=== PATIENT | female | born 1980 | race Caucasian/White ===

== ENCOUNTER 2018-12-27 18:43 | Emergency (ER) | payer BC ==
--- NOTE | 2018-12-27 19:17 | ERPHSYRPT ---
- History of Present Illness Time Seen by Provider: 12/27/18 19:00 Historian: patient, family Exam Limitations: no limitations Patient Subjective Stated Complaint: pt reports vomiting starting at 0630 today also reports right upper quadrant pain. pt reports she last ate approx 1300 today and immediately vomited. Triage Nursing Assessment: pt is aox3, appears in pain, tearful upon exam, pupils perrl, afebrile, resps easy and non labored, radial pulses strong and equal, cap refill < 3 seconds, pt abd soft, tender to the right upper quadrant, bowel sounds present normoactive x4. pt skin pink warm dry. Physician History: 38 y/o white female presents with epigastric to ruq abd pain and associated n/v since this am at 0630. pt has had a cholecystectomy in the past. no fever. no diarrhea no urinary sx. denies cp and soa. pt states she can take dilaudid and demerol. Timing/Duration: today Quality: sharpness, stabbing Abdominal Pain Onset Location: RUQ, epigastric Pain Radiation: no radiation Severity of Pain-Max: moderate Severity of Pain-Current: moderate Modifying Factors: Improves With: palpation, vomiting Associated Symptoms: loss of appetite, nausea, vomiting Previous symptoms: no prior history Allergies/Adverse Reactions: morphine Allergy (Verified 12/27/18 19:08) Home Medications: Levothyroxine Sodium 150 Mcg [Synthroid 150 Mcg] 137 mcg PO DAILY 12/27/18 [History] Hx Tetanus, Diphtheria Vaccination/Date Given: Yes Hx Influenza Vaccination/Date Given: No Hx Pneumococcal Vaccination/Date Given: No Immunizations Up to Date: Yes - Review of Systems Constitutional: No Symptoms Eyes: No Symptoms Ears, Nose, & Throat: No Symptoms Respiratory: No Symptoms Cardiac: No Symptoms Abdominal/Gastrointestinal: Abdominal Pain, Nausea, Vomiting Genitourinary Symptoms: No Symptoms Musculoskeletal: No Symptoms Skin: No Symptoms Neurological: No Symptoms Psychological: No Symptoms Endocrine: No Symptoms Hematologic/Lymphatic: No Symptoms Immunological/Allergic: No Symptoms All Other Systems: Reviewed and Negative - Past Medical History Pertinent Past Medical History: Yes Neurological History: No Pertinent History ENT History: No Pertinent History Cardiac History: No Pertinent History Respiratory History: No Pertinent History Endocrine Medical History: Hypothyroidism, Thyroid Cancer GI Medical History: No Pertinent History History: No Pertinent History Psycho-Social History: No Pertinent History Female Reproductive Disorders: No Pertinent History - Past Surgical History Past Surgical History: Yes Gastrointestinal: Cholecystectomy, Other Genitourinary: No Pertinent History Musculoskeletal: No Pertinent History Female Surgical History: Tubal Ligation Other Surgical History: thyroidectomy 2005. thymus removal. intestinal polyps removed. ovarian cysts removed - Social History Smoking Status: Never smoker Patient Lives Alone: No - Female History Hx Last Menstrual Period: 12/04/18 Hx Now: No - Nursing Vital Signs Nursing Vital Signs: Initial Vital Signs Temperature 98.0 F 12/27/18 18:50 Pulse Rate 103 H 12/27/18 18:50 Respiratory Rate 20 12/27/18 18:50 Blood Pressure 182/113 12/27/18 18:50 O2 Sat by Pulse Oximetry 98 12/27/18 18:50 Pain Scale Pain Intensity 2 - Physical Exam General Appearance: mild distress, alert, anxiety Eye Exam: PERRL/EOMI, eyes nml inspection Ears, Nose, Throat Exam: normal ENT inspection, moist mucous membranes Neck Exam: normal inspection, non-tender, supple, full range of motion Respiratory Exam: normal breath sounds, lungs clear, airway intact, No chest tenderness, No respiratory distress Cardiovascular Exam: regular rate/rhythm, normal heart sounds, normal peripheral pulses Gastrointestinal/Abdomen Exam: soft, normal bowel sounds, tenderness (ruq and epigastric), No guarding, No rebound Pelvic Exam: not done Rectal Exam: not done Back Exam: normal inspection, normal range of motion, No CVA tenderness, No vertebral tenderness Extremity Exam: normal inspection Neurologic Exam: alert, oriented x 3, cooperative, 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 Skin Exam: normal color, warm, dry Lymphatic Exam: No adenopathy SpO2 Interpretation: normal SpO2: 98 O2 Delivery: Room Air - Course Nursing assessment & vital signs reviewed: Yes Ordered Tests: Active Orders 24 hr Category Date Time Status IV Insertion STAT Care 12/27/18 19:05 Active ABDOMEN AND PELVIS W/0 CONTRAS [CT] Stat Exams 12/27/18 20:15 Taken AMYLASE Stat Lab 12/27/18 19:35 Completed CBC W DIFF Stat Lab 12/27/18 19:35 Completed CMP Stat Lab 12/27/18 19:35 Completed HCG,QUALITATIVE URINE Stat Lab 12/27/18 19:36 Completed LIPASE Stat Lab 12/27/18 19:35 Completed Lactic Acid Stat Lab 12/27/18 19:39 Completed UA W/RFX UR CULTURE Stat Lab 12/27/18 19:36 Completed Medication Summary Discontinued Medications Generic Name Dose Route Start Last Admin Trade Name Milena PRN Reason Stop Dose Admin Hydromorphone HCl 1 mg 12/27/18 19:18 12/27/18 19:24 Hydromorphone 1 Mg/Ml Ampule IV 12/27/18 19:19 1 mg STAT ONE Administration Hydromorphone HCl Confirm 12/27/18 19:21 Hydromorphone 1 Mg/Ml Ampule Administered 12/27/18 19:22 Dose 1 mg .ROUTE .STK-MED ONE Sodium Chloride 1,000 mls @ 999 mls/hr 12/27/18 19:18 12/27/18 20:25 Sodium Chloride 0.9% 1000 Ml IV 12/27/18 20:18 Infused .Q1H1M STA Infusion Sodium Chloride Confirm 12/27/18 19:21 Sodium Chloride 0.9% 1000 Ml Administered 12/27/18 19:22 Dose 1,000 mls @ ud .ROUTE .STK-MED ONE Ondansetron HCl 4 mg 12/27/18 19:18 12/27/18 19:24 Zofran 4 Mg/2 Ml Vial IV 12/27/18 19:19 4 mg STAT ONE Administration Ondansetron HCl Confirm 12/27/18 19:20 Zofran 4 Mg/2 Ml Vial Administered 12/27/18 19:21 Dose 4 mg .ROUTE .STK-MED ONE Promethazine HCl 12.5 mg 12/27/18 20:28 12/27/18 20:33 Phenergan 25 Mg Inj IM 12/27/18 20:29 12.5 mg STAT ONE Administration Promethazine HCl Confirm 12/27/18 20:30 Phenergan 25 Mg Inj Administered 12/27/18 20:31 Dose 25 mg .ROUTE .STK-MED ONE Lab/Rad Data: Laboratory Result Diagrams 12/27/18 19:35 12/27/18 19:35 Laboratory Results 12/27/18 12/27/18 12/27/18 Range/Units 19:39 19:36 19:36 WBC (4.0-10.5) K/mm3 RBC (4.1-5.4) M/mm3 Hgb (12.0-16.0) gm/dl Hct (35-47) % MCV (78-100) fl MCH (26-32) pg MCHC (32-36) g/dl RDW (11.5-14.0) % Plt Count (150-450) K/mm3 MPV (6-9.5) fl Gran % (36.0-66.0) % Eos # (Auto) (0-0.5) Absolute Lymphs (auto) (1.0-4.6) Absolute Monos (auto) (0.0-1.3) Lymphocytes % (24.0-44.0) % Monocytes % (0.0-12.0) % Eosinophils % (0.00-5.0) % Basophils % (0.0-0.4) % Absolute Granulocytes (1.4-6.9) Basophils # (0-0.4) Sodium (137-145) mmol/L Potassium (3.5-5.1) mmol/L Chloride (98-107) mmol/L Carbon Dioxide (22-30) mmol/L Anion Gap (5-15) MEQ/L BUN (7-17) mg/dL Creatinine (0.52-1.04) mg/dL Estimated GFR ML/MIN Glucose (74-106) mg/dL Lactic Acid 1.7 (0.4-2.0) Calcium (8.4-10.2) mg/dL Total Bilirubin (0.2-1.3) mg/dL AST (14-36) U/L ALT (0-35) U/L Alkaline Phosphatase (38-126) U/L Serum Total Protein (6.3-8.2) g/dL Albumin (3.5-5.0) g/dL Amylase (30-110) U/L Lipase (23-300) U/L Urine Color YELLOW (YELLOW) Urine Appearance SLIGHTLY CLOUDY (CLEAR) Urine pH 5.0 (5-6) Ur Specific Unity 1.016 (1.005-1.025) Urine Protein NEGATIVE (Negative) Urine Ketones NEGATIVE (NEGATIVE) Urine Blood NEGATIVE (0-5) Sj/ul Urine Nitrite NEGATIVE (NEGATIVE) Urine Bilirubin NEGATIVE (NEGATIVE) Urine Urobilinogen NEGATIVE (0-1) mg/dL Ur Leukocyte Esterase NEGATIVE (NEGATIVE) Urine WBC (Auto) 3-5 (0-5) /HPF Urine RBC (Auto) NONE (0-2) /HPF U Epithel Cells (Auto) RARE (FEW) /HPF Urine Bacteria (Auto) RARE (NEGATIVE) /HPF Urine Mucus (Auto) SLIGHT (NEGATIVE) /HPF Urine Culture Reflexed NO (NO) Urine Glucose NEGATIVE (NEGATIVE) mg/dL Urine HCG, Qual NEGATIVE (Negative) 12/27/18 12/27/18 Range/Units 19:35 19:35 WBC 5.9 (4.0-10.5) K/mm3 RBC 4.72 (4.1-5.4) M/mm3 Hgb 13.8 (12.0-16.0) gm/dl Hct 40.5 (35-47) % MCV 85.8 (78-100) fl MCH 29.2 (26-32) pg MCHC 34.1 (32-36) g/dl RDW 14.6 H (11.5-14.0) % Plt Count 250 (150-450) K/mm3 MPV 9.9 H (6-9.5) fl Gran % 63.3 (36.0-66.0) % Eos # (Auto) 0.17 (0-0.5) Absolute Lymphs (auto) 1.45 (1.0-4.6) Absolute Monos (auto) 0.48 (0.0-1.3) Lymphocytes % 24.7 (24.0-44.0) % Monocytes % 8.2 (0.0-12.0) % Eosinophils % 2.9 (0.00-5.0) % Basophils % 0.9 (0.0-0.4) % Absolute Granulocytes 3.73 (1.4-6.9) Basophils # 0.05 (0-0.4) Sodium 143 (137-145) mmol/L Potassium 3.8 (3.5-5.1) mmol/L Chloride 109 H (98-107) mmol/L Carbon Dioxide 23 (22-30) mmol/L Anion Gap 14.6 (5-15) MEQ/L BUN 10 (7-17) mg/dL Creatinine 0.77 (0.52-1.04) mg/dL Estimated GFR > 60.0 ML/MIN Glucose 84 (74-106) mg/dL Lactic Acid (0.4-2.0) Calcium 9.5 (8.4-10.2) mg/dL Total Bilirubin 0.80 (0.2-1.3) mg/dL AST 26 (14-36) U/L ALT 21 (0-35) U/L Alkaline Phosphatase 58 (38-126) U/L Serum Total Protein 7.7 (6.3-8.2) g/dL Albumin 4.6 (3.5-5.0) g/dL Amylase 64 (30-110) U/L Lipase 93 (23-300) U/L Urine Color (YELLOW) Urine Appearance (CLEAR) Urine pH (5-6) Ur Specific Unity (1.005-1.025) Urine Protein (Negative) Urine Ketones (NEGATIVE) Urine Blood (0-5) Sj/ul Urine Nitrite (NEGATIVE) Urine Bilirubin (NEGATIVE) Urine Urobilinogen (0-1) mg/dL Ur Leukocyte Esterase (NEGATIVE) Urine WBC (Auto) (0-5) /HPF Urine RBC (Auto) (0-2) /HPF U Epithel Cells (Auto) (FEW) /HPF Urine Bacteria (Auto) (NEGATIVE) /HPF Urine Mucus (Auto) (NEGATIVE) /HPF Urine Culture Reflexed (NO) Urine Glucose (NEGATIVE) mg/dL Urine HCG, Qual (Negative) - Progress Progress: improved Progress Note: 12/27/18 22:50 ct abd/pelvis-no acute process; increased fecal retention. no acute appendicitis Counseled pt/family regarding: lab results, diagnosis, need for follow-up, rad results - Departure Departure Disposition: Home Clinical Impression: Abdominal pain, Constipation Condition: Stable Critical Care Time: No Referrals: GETACHEW BOTELLO [Primary Care Provider] - Additional Instructions: drink plenty of fluids. use miralax, milk of magnesia or fleets enema for constipation. follow up with primary doctor for persistent symptoms Prescriptions: Ondansetron HCl [Zofran] 4 mg PO TID PRN #10 tablet PRN Reason: Nausea/Vomiting
[2018-12-27] MEDS ORDERED: Zofran 4 MG/2 ML VIAL IV ONE (19:18)
[2018-12-27] MEDS ORDERED: Hydromorphone 1 mg/ml Ampule IV ONE (19:18)
[2018-12-27] MEDS ORDERED: Sodium Chloride 0.9% 1000 ML 1,000 ML IV STA (19:18)
[2018-12-27] MEDS ORDERED: Zofran 4 MG/2 ML VIAL ONE (19:20)
[2018-12-27] MEDS ORDERED: Hydromorphone 1 mg/ml Ampule ONE (19:21)
[2018-12-27] MEDS ORDERED: Sodium Chloride 0.9% 1000 ML 1,000 ML ONE (19:21)
[2018-12-27 19:36] LABS: Absolute Neutrophil Ct (ANC) 3.73 (1.4-6.9); BASOPHIL % 0.9 % (0.0-0.4); Basophil (Absolute #) 0.05 (0-0.4); Eosinophil % 2.9 % (0.00-5.0); Eosinophil (Absolute #) 0.17 (0-0.5); Hematocrit 40.5 % (35-47); Hemoglobin 13.8 gm/dl (12.0-16.0); Lymphocyte (Absolute #) 1.45 (1.0-4.6); Lymphocytes % 24.7 % (24.0-44.0); Mean Cell Volume 85.8 fl (78-100); Mean Corpuscular Hemoglobin 29.2 pg (26-32); Mean Corpuscular Hgb Concent. 34.1 g/dl (32-36); Mean Platelet Volume 9.9 fl (6-9.5); Monocyte (Absolute #) 0.48 (0.0-1.3); Monocytes % 8.2 % (0.0-12.0); Neutrophil % 63.3 % (36.0-66.0); Platelet Count 250 K/mm3 (150-450); Red Blood Count 4.72 M/mm3 (4.1-5.4); Red Cell Distribution Width 14.6 % (11.5-14.0); White Blood Count 5.9 K/mm3 (4.0-10.5)
[2018-12-27 19:45] LABS: Appearance SLIGHTLY CLOUDY (CLEAR); Bacteria RARE /HPF (NEGATIVE); Bilirubin NEGATIVE (NEGATIVE); Blood NEGATIVE Ery/ul (0-5); Epithelial Cells RARE /HPF (FEW); Glucose NEGATIVE (NEGATIVE); Ketones NEGATIVE (NEGATIVE); Leukocyte Esterase NEGATIVE (NEGATIVE); Mucus SLIGHT /HPF (NEGATIVE); Nitrite NEGATIVE (NEGATIVE); Protein,Urine Dip NEGATIVE (Negative); Specific Gravity 1.016 (1.005-1.025); Urobilinogen NEGATIVE mg/dL (0-1)
[2018-12-27 19:49] LABS: ALBUMIN 4.6 g/dL (3.5-5.0); ALKALINE PHOSPHATASE 58 U/L (38-126); AMYLASE 64 U/L (30-110); ANION GAP 14.6 MEQ/L (5-15); BLOOD UREA NITROGEN 10 mg/dL (7-17); CHLORIDE 109 mmol/L (98-107); Calcium 9.5 mg/dL (8.4-10.2); Carbon Dioxide 23 mmol/L (22-30); Creatinine 1 0.77 mg/dL (0.52-1.04); Glucose 84 mg/dL (74-106); LIPASE 93 U/L (23-300); Potassium 3.8 mmol/L (3.5-5.1); SGOT/AST 26 U/L (14-36); SGPT/ALT 21 U/L (0-35); SODIUM 143 mmol/L (137-145); Total Protein 7.7 g/dL (6.3-8.2)
[2018-12-27] MEDS ORDERED: Phenergan 25 MG INJ IM ONE (20:28)
[2018-12-27] MEDS ORDERED: Phenergan 25 MG INJ ONE (20:30)
[2018-12-27 21:48] VITALS: O2SAT 98
[2018-12-27 23:02] VITALS: BP 123/86; PULSE 84
--- NOTE | 2018-12-28 08:52 | XRAY ---
Indication: Abdomen pain, nausea, and vomiting. Multiple contiguous axial images obtained through the abdomen and pelvis without contrast as ordered. Comparison: None Lung bases demonstrates minimal bilateral dependent atelectasis and small left lower lobe calcified granuloma. No infiltrate or effusion. Heart is not enlarged. Noncontrasted stomach and bowel loops appear nonobstructed. Normal appendix. There is mild diffuse scattered colonic fecal debris throughout. Previous cholecystectomy. No free fluid/air. Remaining liver, pancreas, spleen, adrenal glands, kidneys, ureters, bladder, uterus, and aorta appear unremarkable for noncontrast exam. Osseous structures intact. No ventral or inguinal hernias. Impression: 1. Mild diffuse fecal stasis without obstruction. 2. Remaining CT abdomen/pelvis without contrast exam is negative. Comment: Preliminary interpretation was made by [facility]. No critical discrepancy. CT DI 23.58
== END 2018-12-27 23:07 | disposition home or self-care (01) ==
LOC: ED 18:43
DX: R10.9 Unspecified abdominal pain (principal); K59.00 Constipation, unspecified
CPT/HCPCS: 36000; 36415; 74176; 80053; 81001; 82150; 83605; 83690; 84703; 85025; 96372; 96374; 96375; 99284; J1170; J2405; J2550

== ENCOUNTER 2018-12-30 14:14 | Observation (INO) | payer BC ==
[2018-12-30] MEDS ORDERED: DILAUDID 2 MG INJECTION IV SCH (15:15)
[2018-12-30] MEDS: DILAUDID 2 MG INJECTION IV PRN ×2 (15:26→18:24)
[2018-12-30] MEDS: Sodium Chloride 0.9% 1000 ML 1,000 ML IV SCH (15:26)
[2018-12-30] MEDS: PROTONIX 40 MG IV IV SCH (15:26)
[2018-12-30] MEDS: Zofran 4 MG/2 ML VIAL IV PRN ×2 (15:28→20:47)
[2018-12-30 15:40] LABS: INR 1.15 (0.8-3.0)
[2018-12-30 15:44] LABS: Absolute Neutrophil Ct (ANC) 2.71 (1.4-6.9); BASOPHIL % 0.5 % (0.0-0.4); Basophil (Absolute #) 0.02 (0-0.4); Eosinophil % 1.4 % (0.00-5.0); Eosinophil (Absolute #) 0.06 (0-0.5); Hematocrit 40.5 % (35-47); Hemoglobin 13.7 gm/dl (12.0-16.0); Lymphocytes % 21.7 % (24.0-44.0); Mean Cell Volume 87.1 fl (78-100); Mean Corpuscular Hemoglobin 29.5 pg (26-32); Mean Corpuscular Hgb Concent. 33.8 g/dl (32-36); Mean Platelet Volume 9.7 fl (6-9.5); Monocyte (Absolute #) 0.45 (0.0-1.3); Monocytes % 10.9 % (0.0-12.0); Neutrophil % 65.5 % (36.0-66.0); Platelet Count 205 K/mm3 (150-450); Red Blood Count 4.65 M/mm3 (4.1-5.4); Red Cell Distribution Width 14.5 % (11.5-14.0); White Blood Count 4.1 K/mm3 (4.0-10.5)
[2018-12-30 15:49] LABS: ALBUMIN 4.2 g/dL (3.5-5.0); ALKALINE PHOSPHATASE 58 U/L (38-126); ANION GAP 14.9 MEQ/L (5-15); BLOOD UREA NITROGEN 11 mg/dL (7-17); CHLORIDE 104 mmol/L (98-107); Calcium 8.6 mg/dL (8.4-10.2); Carbon Dioxide 28 mmol/L (22-30); Creatinine 1 0.84 mg/dL (0.52-1.04); Glucose 93 mg/dL (74-106); Potassium 3.7 mmol/L (3.5-5.1); SGOT/AST 25 U/L (14-36); SGPT/ALT 38 U/L (0-35); SODIUM 143 mmol/L (137-145); Total Protein 7.2 g/dL (6.3-8.2)
[2018-12-31 01:37] LABS: Slide Review 1 YES
[2018-12-31] MEDS: Sodium Chloride 0.9% 1000 ML 1,000 ML IV SCH (01:43)
[2018-12-31] MEDS: TYLENOL 325 MG PO PRN ×2 (01:44→08:32)
[2018-12-31 08:14] VITALS: BP 117/71; PULSE 74; O2SAT 96
--- NOTE | 2018-12-31 08:27 | PCM.DCORD ---
- Discharge Discharge Date: 12/31/18 Disposition: Home, Self-Care Condition: Fair Prescriptions: New RX: Acetaminophen 325 mg [Tylenol 325 mg] 650 mg PO Q4H PRN PRN #0 tablet PRN Reason: Pain Ondansetron ODT 4 MG [Zofran Odt 4 mg] 4 mg PO Q6H PRN PRN #10 tab.rapdis PRN Reason: Nausea Continue RX: Levothyroxine Sodium 150 Mcg [Synthroid 150 Mcg] 274 mcg PO DAILY Outpatient Orders: C.Difficile by PCR Location: LABORATORY GI PANEL Location: LABORATORY Follow up with: PRADEEP MOSELEY [ACTIVE STAFF] - 1 Week
--- NOTE | 2018-12-31 08:40 | XRAY ---
Indication: Mid abdomen and right lower quadrant pain. Multiple contiguous axial images obtained through the abdomen and pelvis using 80 cc Isovue 370 contrast. Comparison: December 27, 2018. Lung bases again demonstrates left base calcified granuloma without infiltrate or effusion. Heart is not enlarged. Noncontrasted stomach and bowel loops appear nonobstructed with clearing of previous fecal stasis. Again normal appendix and previous cholecystectomy. No free fluid/air. Remaining liver, pancreas, spleen, adrenal glands, kidneys, ureters, bladder, uterus, and aorta appear normal in CT appearance and attenuation. No pathologic retroperitoneal lymphadenopathy. Impression: CT abdomen/pelvis with contrast exam is negative. CT DI 17.25
--- NOTE | 2018-12-31 08:49 | CONS ---
CONSULT DATE: 12/30/2018 REASON FOR CONSULT: Possible bowel obstruction. HISTORY: This is a 38 year-old who initially had a complicated medical history. She apparently had cholecystectomy back in 2004. During evaluation she had some thyroid tests and she subsequently had a total thyroidectomy for cancer. She subsequently had a thymectomy. The thymectomy did not apparently have any cancer in it. She had multiple ovarian cysts treated by both laparoscopic and I believe at least one open oophorectomy. She has had two sections. She has had at least two colonoscopies with polyps. Over the last five years have basically been boring. I am not sure she has had anything the last five years. She had pain Friday and came in on Friday and CT scan basically negative other than steatosis. She went home. She came back. She had four or five episodes of vomiting and four or five episodes of diarrhea. Nobody else has been sick in her family. She is not aware of any specific food that did this to her. She is better but she is not hungry. She still has some right lower quadrant tenderness. She is getting a repeat CT scan at this time. IMPRESSION: The patient still could have a very slow appendicitis. She could have recurrence of ovarian cyst as she has had multiple cysts in the past. She could have a partial small bowel obstruction with adhesions secondary to her multiple surgeries and she still could just have a bad episode of gastroenteritis from food which I am probably leaning towards. PLAN: We will see what the CT scan shows.
[2018-12-31] MEDS: PROTONIX 40 MG IV IV SCH (09:00)
[2018-12-31] MEDS ORDERED: SYNTHROID 125 MCG PO SCH (10:00)
[2018-12-31] MEDS ORDERED: SYNTHROID 150 MCG PO SCH (10:00)
== END 2018-12-31 09:40 | disposition home or self-care (01) ==
LOC: MED SURG 14:14
PROVIDERS: ADMIT Internal Medicine; ATTEND Internal Medicine
DX: R10.31 Right lower quadrant pain (principal); R19.7 Diarrhea, unspecified; R11.10 Vomiting, unspecified; Z85.850 Personal history of malignant neoplasm of thyroid
CPT/HCPCS: 36415; 74177; 80053; 85025; 85610; 86709; 93005; G0378; J1170; J2405; A9270-GY

== ENCOUNTER 2019-11-18 12:07 | Emergency (ER) | payer SELFPAY ==
--- NOTE | 2019-11-18 12:15 | ERPHSYRPT ---
- History of Present Illness Time Seen by Provider: 11/18/19 12:14 Historian: patient Exam Limitations: no limitations Physician History: 39-year-old white female who has history of hypothyroidism and a family history of cardiac disease who presents with chest pain that began prior to arrival. It is localized to the left anterior chest. There is no radiation. She describes it as a shocking sensation. Earlier in the week she was having episodes of dizziness and felt as though she was going to pass out. Patient states that her pulse on her watch was measuring a pulse of 180 earlier in the week. There is been no change in her medications. Patient states that she is not under a lot of stress and nothing has changed in her life to cause new stressors. She is not short of breath. She has no nausea vomiting or diarrhea. She has no abdominal pain. She is never had anything like this before. She does not smoke cigarettes. Timing/Duration: today, sudden, worse Quality: sharpness, stabbing, other Location: other (Electrical shocks localized to left anterior chest) Chest Pain Radiation: no radiation Severity of Pain-Max: moderate Severity of Pain-Current: moderate Modifying Factors: Improves With: nothing Associated Symptoms: dizziness, No nausea, No vomiting, No palpitations, No abdominal pain, No shortness of breath, No cough, No fever, No weakness, No headache Prior Chest Pain/Cardiac Workup: no prior chest pain Nitro Today/Relief: no nitro taken today Aspirin Treatment Today: no aspirin today Allergies/Adverse Reactions: morphine Allergy (Verified 12/30/18 14:45) Home Medications: Levothyroxine Sodium 150 Mcg [Synthroid 150 Mcg] 274 mcg PO DAILY 12/27/18 [History] Hx Tetanus, Diphtheria Vaccination/Date Given: Yes Hx Influenza Vaccination/Date Given: No Hx Pneumococcal Vaccination/Date Given: No Travel Risk - International Travel Have you traveled outside of the country in past 3 weeks: No - Coronavirus Screening Are you exhibiting any of the following symptoms?: No Close contact with a COVID-19 positive Pt in past 14-21 Days: No - Review of Systems Constitutional: No Symptoms Eyes: No Symptoms Ears, Nose, & Throat: No Symptoms Respiratory: No Symptoms Cardiac: Chest Pain Abdominal/Gastrointestinal: No Symptoms Genitourinary Symptoms: No Symptoms Musculoskeletal: No Symptoms Skin: No Symptoms Neurological: No Symptoms Psychological: No Symptoms Endocrine: No Symptoms Hematologic/Lymphatic: No Symptoms Immunological/Allergic: No Symptoms All Other Systems: Reviewed and Negative - Past Medical History Pertinent Past Medical History: Yes Neurological History: No Pertinent History ENT History: No Pertinent History Cardiac History: No Pertinent History Respiratory History: No Pertinent History Endocrine Medical History: Hypothyroidism, Thyroid Cancer Musculoskeletal History: No Pertinent History GI Medical History: Polyps History: No Pertinent History Psycho-Social History: No Pertinent History Female Reproductive Disorders: Other Other Medical History: OVARIAN CYSTS - Past Surgical History Past Surgical History: Yes Neuro Surgical History: No Pertinent History Cardiac: No Pertinent History Respiratory: No Pertinent History Gastrointestinal: Cholecystectomy, Other Genitourinary: No Pertinent History Musculoskeletal: No Pertinent History Female Surgical History: Tubal Ligation Other Surgical History: thyroidectomy 2004. thymus removal. intestinal polyps removed. ovarian cysts removed - Social History Smoking Status: Never smoker Exposure to second hand smoke: No Drug Use: none Patient Lives Alone: No - Nursing Vital Signs Nursing Vital Signs: Initial Vital Signs Temperature 98.3 F 11/18/19 12:08 Pulse Rate 96 H 11/18/19 12:08 Respiratory Rate 22 11/18/19 12:08 Blood Pressure 159/101 11/18/19 12:08 O2 Sat by Pulse Oximetry 100 11/18/19 12:08 Pain Scale Pain Intensity 3 - Physical Exam General Appearance: mild distress, alert, anxiety Eye Exam: PERRL/EOMI, eyes nml inspection Ears, Nose, Throat Exam: normal ENT inspection, moist mucous membranes Neck Exam: normal inspection, non-tender, supple, full range of motion Respiratory Exam: normal breath sounds, chest tenderness, lungs clear, airway intact, No respiratory distress Cardiovascular Exam: regular rate/rhythm, normal heart sounds, normal peripheral pulses Gastrointestinal/Abdomen Exam: soft, normal bowel sounds, No tenderness Pelvic Exam: not done Rectal Exam: not done Back Exam: normal inspection, normal range of motion, No CVA tenderness Extremity Exam: normal inspection, normal range of motion, pelvis stable Neurologic Exam: alert, oriented x 3, cooperative, shoe stainer II-XII nml as tested, nml cerebellar function, nml station & gait, sensation nml Skin Exam: normal color, warm, dry Lymphatic Exam: No adenopathy SpO2 Interpretation: normal O2 Delivery: Room Air - Course Nursing assessment & vital signs reviewed: Yes EKG Interpreted by Me: RATE (93), Sinus Rhythm, NORMAL AXIS, NORMAL INTERVALS, NORMAL QRS, Other (There are no acute ischemic changes on today's EKG. There are no significant changes when compared to EKG dated 12/30/2018.) Ordered Tests: Active Orders 24 hr Category Date Time Status Document Processing Specialist STAT Care 11/18/19 12:18 Active EKG-ER Only STAT Care 11/18/19 12:17 Active IV Insertion STAT Care 11/18/19 12:17 Active Pulse Oximetry (ED) STAT Care 11/18/19 12:17 Active CHEST 1 VIEW (PORTABLE) Stat Exams 11/18/19 12:17 Completed CBC W DIFF Stat Lab 11/18/19 12:30 Completed CMP Stat Lab 11/18/19 12:30 Completed D-DIMER QUANTITATIVE Stat Lab 11/18/19 12:30 Completed NT PRO BNP Stat Lab 11/18/19 12:30 Completed PROTIME WITH INR Stat Lab 11/18/19 12:30 Completed T4 (Thyroxine) Stat Lab 11/18/19 12:30 Received TROPONIN Q3H Lab 11/18/19 12:30 Completed TROPONIN Q3H Lab 11/18/19 15:30 Ordered TROPONIN Q3H Lab 11/18/19 18:30 Ordered TROPONIN Q3H Lab 11/18/19 21:30 Ordered TROPONIN Q3H Lab 11/19/19 00:30 Ordered TSH [TSH, 3RD Generation] Stat Lab 11/18/19 12:30 Received Holter Monitor ONCE RT 11/18/19 13:33 Active Medication Summary Discontinued Medications Generic Name Dose Route Start Last Admin Trade Name Freq PRN Reason Stop Dose Admin Aspirin 324 mg 11/18/19 12:17 11/18/19 12:35 Baby Aspirin 81 Mg Chew PO 11/18/19 12:18 324 mg STAT ONE Administration Aspirin Confirm 11/18/19 12:49 Baby Aspirin 81 Mg Chew Administered 11/18/19 12:50 Dose 324 mg .ROUTE .STK-MED ONE Hydromorphone HCl 1 mg 11/18/19 12:38 11/18/19 12:51 Hydromorphone 1 Mg/Ml Ampule IV 11/18/19 12:39 1 mg STAT ONE Administration Hydromorphone HCl Confirm 11/18/19 12:49 Hydromorphone 1 Mg/Ml Ampule Administered 11/18/19 12:50 Dose 1 mg .ROUTE .STK-MED ONE Ondansetron HCl 4 mg 11/18/19 12:36 11/18/19 12:50 Zofran 4 Mg/2 Ml Vial IV 11/18/19 12:37 4 mg STAT ONE Administration Ondansetron HCl Confirm 11/18/19 12:49 Zofran 4 Mg/2 Ml Vial Administered 11/18/19 12:50 Dose 4 mg .ROUTE .[facility] ONE Lab/Rad Data: Laboratory Result Diagrams 11/18/19 12:30 11/18/19 12:30 Laboratory Results 11/18/19 11/18/19 11/18/19 Range/Units 12:30 12:30 12:30 WBC (4.0-10.5) K/mm3 RBC (4.1-5.4) M/mm3 Hgb (12.0-16.0) gm/dl Hct (35-47) % MCV (78-100) fl MCH (26-32) pg MCHC (32-36) g/dl RDW (11.5-14.0) % Plt Count (150-450) K/mm3 MPV (7.5-11.0) fl Gran % (36.0-66.0) % Eos # (Auto) (0-0.5) Absolute Lymphs (auto) (1.0-4.6) Absolute Monos (auto) (0.0-1.3) Lymphocytes % (24.0-44.0) % Monocytes % (0.0-12.0) % Eosinophils % (0.00-5.0) % Basophils % (0.0-0.4) % Absolute Granulocytes (1.4-6.9) Basophils # (0-0.4) PT 12.5 H (9.95-12.35) SECONDS INR 1.11 (0.8-3.0) D-Dimer 386 (215-500) ng/mL Sodium 137 (137-145) mmol/L Potassium 3.6 (3.5-5.1) mmol/L Chloride 105 (98-107) mmol/L Carbon Dioxide 25 (22-30) mmol/L Anion Gap 11.0 (5-15) MEQ/L BUN 8 (7-17) mg/dL Creatinine 0.71 (0.52-1.04) mg/dL Estimated GFR > 60.0 ML/MIN Glucose 97 (74-106) mg/dL Calcium 9.7 (8.4-10.2) mg/dL Total Bilirubin 1.00 (0.2-1.3) mg/dL AST 44 H (14-36) U/L ALT 33 (0-35) U/L Alkaline Phosphatase 69 (38-126) U/L Troponin I < 0.012 (0.000-0.034) ng/mL NT-Pro-B Natriuret Pep 106 (0-450) pg/mL Serum Total Protein 7.3 (6.3-8.2) g/dL Albumin 4.3 (3.5-5.0) g/dL 11/18/19 Range/Units 12:30 WBC 5.9 (4.0-10.5) K/mm3 RBC 4.86 (4.1-5.4) M/mm3 Hgb 13.1 (12.0-16.0) gm/dl Hct 40.7 (35-47) % MCV 83.7 (78-100) fl MCH 27.0 (26-32) pg MCHC 32.2 (32-36) g/dl RDW 14.3 H (11.5-14.0) % Plt Count 257 (150-450) K/mm3 MPV 10.7 (7.5-11.0) fl Gran % 63.9 (36.0-66.0) % Eos # (Auto) 0.06 (0-0.5) Absolute Lymphs (auto) 1.43 (1.0-4.6) Absolute Monos (auto) 0.60 (0.0-1.3) Lymphocytes % 24.2 (24.0-44.0) % Monocytes % 10.2 (0.0-12.0) % Eosinophils % 1.0 (0.00-5.0) % Basophils % 0.7 (0.0-0.4) % Absolute Granulocytes 3.77 (1.4-6.9) Basophils # 0.04 (0-0.4) PT (9.95-12.35) SECONDS INR (0.8-3.0) D-Dimer (215-500) ng/mL Sodium (137-145) mmol/L Potassium (3.5-5.1) mmol/L Chloride (98-107) mmol/L Carbon Dioxide (22-30) mmol/L Anion Gap (5-15) MEQ/L BUN (7-17) mg/dL Creatinine (0.52-1.04) mg/dL Estimated GFR ML/MIN Glucose (74-106) mg/dL Calcium (8.4-10.2) mg/dL Total Bilirubin (0.2-1.3) mg/dL AST (14-36) U/L ALT (0-35) U/L Alkaline Phosphatase (38-126) U/L Troponin I (0.000-0.034) ng/mL NT-Pro-B Natriuret Pep (0-450) pg/mL Serum Total Protein (6.3-8.2) g/dL Albumin (3.5-5.0) g/dL - Progress Progress: improved, re-examined Air Movement: good Progress Note: 11/18/19 12:39 Patient is allergic to morphine. However, she has had Dilaudid intravenously in this emergency department without any problems or reactions. 11/18/19 13:31 Chest x-ray shows no acute pulmonary process. Patient states her chest pain is resolved. Blood Culture(s) Obtained: No Antibiotics given: No Counseled pt/family regarding: lab results, diagnosis, need for follow-up, rad results - Departure Departure Disposition: Home Clinical Impression: Chest pain Condition: Stable Critical Care Time: No Referrals: GETACHEW BOTELLO [Primary Care Provider] - Additional Instructions: Continue the Holter monitor for 48 hours. Return to the emergency department if symptoms worsen. Call your primary care provider later today to make arrangements for follow-up appointment.
[2019-11-18] MEDS ORDERED: BABY ASPIRIN 81 MG CHEW PO ONE (12:17)
[2019-11-18] MEDS ORDERED: Zofran 4 MG/2 ML VIAL IV ONE (12:36)
[2019-11-18] MEDS ORDERED: Hydromorphone 1 mg/ml Ampule IV ONE (12:38)
[2019-11-18 12:41] LABS: Absolute Neutrophil Ct (ANC) 3.77 (1.4-6.9); BASOPHIL % 0.7 % (0.0-0.4); Basophil (Absolute #) 0.04 (0-0.4); Eosinophil (Absolute #) 0.06 (0-0.5); Hematocrit 40.7 % (35-47); Hemoglobin 13.1 gm/dl (12.0-16.0); Lymphocyte (Absolute #) 1.43 (1.0-4.6); Lymphocytes % 24.2 % (24.0-44.0); Mean Cell Volume 83.7 fl (78-100); Mean Corpuscular Hgb Concent. 32.2 g/dl (32-36); Mean Platelet Volume 10.7 fl (7.5-11.0); Monocytes % 10.2 % (0.0-12.0); Neutrophil % 63.9 % (36.0-66.0); Platelet Count 257 K/mm3 (150-450); Red Blood Count 4.86 M/mm3 (4.1-5.4); Red Cell Distribution Width 14.3 % (11.5-14.0); White Blood Count 5.9 K/mm3 (4.0-10.5)
--- NOTE | 2019-11-18 12:45 | XRAY ---
Indication: Chest pain. Comparison: None Portable apical lordotic chest demonstrates normal heart, lungs, and bony thorax.
[2019-11-18] MEDS ORDERED: Hydromorphone 1 mg/ml Ampule ONE (12:49)
[2019-11-18] MEDS ORDERED: Zofran 4 MG/2 ML VIAL ONE (12:49)
[2019-11-18] MEDS ORDERED: BABY ASPIRIN 81 MG CHEW ONE (12:49)
[2019-11-18 13:03] LABS: INR 1.11 (0.8-3.0); PROTIME 12.5 SECONDS (9.95-12.35)
[2019-11-18 13:16] LABS: ALBUMIN 4.3 g/dL (3.5-5.0); ALKALINE PHOSPHATASE 69 U/L (38-126); BLOOD UREA NITROGEN 8 mg/dL (7-17); CHLORIDE 105 mmol/L (98-107); Calcium 9.7 mg/dL (8.4-10.2); Carbon Dioxide 25 mmol/L (22-30); Creatinine 1 0.71 mg/dL (0.52-1.04); EST GLOMERULAR FILTRATION RATE > 60.0 ML/MIN; Glucose 97 mg/dL (74-106); NT PRO BNP 106 pg/mL (0-450); Potassium 3.6 mmol/L (3.5-5.1); SGOT/AST 44 U/L (14-36); SGPT/ALT 33 U/L (0-35); SODIUM 137 mmol/L (137-145); Total Protein 7.3 g/dL (6.3-8.2)
[2019-11-18 13:59] VITALS: BP 138/87; PULSE 95; O2SAT 98
== END 2019-11-18 14:06 | disposition home or self-care (01) ==
LOC: ED 12:07
DX: R07.9 Chest pain, unspecified (principal); Z82.49 Family history of ischemic heart disease and other diseases of the circulatory system; E03.9 Hypothyroidism, unspecified; Z85.850 Personal history of malignant neoplasm of thyroid
CPT/HCPCS: 36000; 36415; 71045; 80053; 83880; 84436; 84443; 84484; 85025; 85379; 85610; 93005; 93041; 93225; 94760; 96374; 96375; 99284; J1170; J2405; A9270-GY

== ENCOUNTER 2020-01-03 15:22 | Emergency (ER) | payer OTHER ==
--- NOTE | 2020-01-03 15:24 | ERPHSYRPT ---
- History of Present Illness Time Seen by Provider: 01/03/20 15:24 Source: patient, family Exam Limitations: no limitations Physician History: This is a 39-year-old white female was Covid 19+ in approximately mid December. Patient has gone beyond the quarantine stage but she has had persistent headache since that time. In the last week she has had intermittent severe headaches. She has a history of migraines and this type of headache she is having intermittently is much worse. She has tried Excedrin, Tylenol and ibuprofen without any significant lasting help. She has vomited. She has had no abdominal pain and no diarrhea. She has no sore throat no earache. She intermittently has some neck spasms but no alix neck pain. She has not had any fevers that she has recorded. No other individuals in the family have similar symptoms. Timing/Duration: yesterday, intermittent Quality: aching Head Pain Location: global Severity of Pain-Max: moderate Severity of Pain-Current: moderate Recent Head Trauma: no recent headache/trauma, occasional headaches Associated Symptoms: nausea/vomiting, other (Headache) Previous symptoms: same symptoms as today (Since december.) Allergies/Adverse Reactions: morphine Allergy (Verified 01/03/20 15:44) Home Medications: Levothyroxine Sodium 150 Mcg [Synthroid 150 Mcg] 274 mcg PO DAILY 12/27/18 [History] Hx Tetanus, Diphtheria Vaccination/Date Given: Yes Hx Influenza Vaccination/Date Given: No Hx Pneumococcal Vaccination/Date Given: No Travel Risk - International Travel Have you traveled outside of the country in past 3 weeks: No - Coronavirus Screening Are you exhibiting any of the following symptoms?: Yes Symptoms: Vomiting/Diarrhea, Headaches/Body Aches/Fatigue Close contact with a COVID-19 positive Pt in past 14-21 Days: Yes - Review of Systems Constitutional: No Symptoms, No Fever, No Weakness Eyes: No Symptoms, Other (Mild sensitivity to light) Ears, Nose, & Throat: No Symptoms Respiratory: No Symptoms Cardiac: No Symptoms Abdominal/Gastrointestinal: No Symptoms Genitourinary Symptoms: No Symptoms Musculoskeletal: No Symptoms Skin: No Symptoms Neurological: Headache Psychological: No Symptoms Endocrine: No Symptoms Hematologic/Lymphatic: No Symptoms Immunological/Allergic: No Symptoms All Other Systems: Reviewed and Negative - Past Medical History Pertinent Past Medical History: Yes Neurological History: No Pertinent History ENT History: No Pertinent History Cardiac History: No Pertinent History Respiratory History: No Pertinent History Endocrine Medical History: Hypothyroidism, Thyroid Cancer Musculoskeletal History: No Pertinent History GI Medical History: Polyps History: No Pertinent History Psycho-Social History: No Pertinent History Female Reproductive Disorders: Other Other Medical History: OVARIAN CYSTS - Past Surgical History Past Surgical History: Yes Neuro Surgical History: No Pertinent History Cardiac: No Pertinent History Respiratory: No Pertinent History Gastrointestinal: Cholecystectomy, Other Genitourinary: No Pertinent History Musculoskeletal: No Pertinent History Female Surgical History: Tubal Ligation Other Surgical History: thyroidectomy 2004. thymus removal. intestinal polyps removed. ovarian cysts removed - Social History Smoking Status: Never smoker Exposure to second hand smoke: No Drug Use: none Patient Lives Alone: No - Nursing Vital Signs Nursing Vital Signs: Initial Vital Signs Temperature 98.3 F 01/03/20 15:32 Pulse Rate 88 01/03/20 15:32 Blood Pressure 175/134 01/03/20 15:32 O2 Sat by Pulse Oximetry 96 01/03/20 15:32 Pain Scale Pain Intensity 8 - Physical Exam General Appearance: mild distress, alert, anxiety Eye Exam: PERRL/EOMI, eyes nml inspection Ears, Nose, Throat Exam: normal ENT inspection, moist mucous membranes Neck Exam: normal inspection, non-tender, supple, full range of motion Respiratory Exam: normal breath sounds, lungs clear, airway intact, No chest tenderness, No respiratory distress Cardiovascular Exam: regular rate/rhythm, normal heart sounds, normal peripheral pulses Gastrointestinal/Abdominal Exam: soft, normal bowel sounds, No tenderness Back Exam: normal inspection, normal range of motion, vertebral tenderness, No CVA tenderness Extremity Exam: normal inspection, normal range of motion, pelvis stable Mental Status Exam: alert, oriented x 3, cooperative cardiac cath tech Exam: normal hearing, normal speech, PERRL, tongue midline Coordination/Gait Exam: normal finger to nose, normal gait, normal cerebellar function Skin Exam: normal color, warm, dry Lymphatic Exam: No adenopathy SpO2 Interpretation: normal O2 Delivery: Room Air - Course Nursing assessment & vital signs reviewed: Yes Ordered Tests: Active Orders 24 hr Category Date Time Status IV Insertion STAT Care 01/03/20 17:32 Active Pulse Oximetry (ED) STAT Care 01/03/20 17:32 Active HEAD WITHOUT CONTRAST [CT] Stat Exams 01/03/20 15:56 Completed CBC W DIFF Stat Lab 01/03/20 17:30 Completed CMP Stat Lab 01/03/20 17:30 Completed CSF GLUCOSE Stat Lab 01/03/20 18:40 Completed CSF PROTEIN Stat Lab 01/03/20 18:40 Completed CSF, CELL COUNT Stat Lab 01/03/20 18:40 Completed CULTURE,CSF Stat Lab 01/03/20 18:43 Received Lactic Acid Stat Lab 01/03/20 17:58 Completed Bullock Screen Stat Lab 01/03/20 17:30 Completed UA W/RFX UR CULTURE Stat Lab 01/03/20 16:33 Completed Medication Summary Generic Name Dose Route Start Last Admin Trade Name Freq PRN Reason Stop Dose Admin Sodium Chloride 1,000 mls @ 999 mls/hr 01/03/20 19:20 Sodium Chloride 0.9% 1000 Ml IV 01/03/20 20:20 .Q1H1M STA Discontinued Medications Generic Name Dose Route Start Last Admin Trade Name Freq PRN Reason Stop Dose Admin Hydromorphone HCl 1 mg 01/03/20 16:42 01/03/20 16:50 Hydromorphone 1 Mg/Ml Injection IM 01/03/20 16:43 1 mg STAT ONE Administration Hydromorphone HCl Confirm 01/03/20 16:46 Hydromorphone 1 Mg/Ml Injection Administered 01/03/20 16:47 Dose 1 mg .ROUTE .STK-MED ONE Hydromorphone HCl 1 mg 01/03/20 17:40 01/03/20 17:45 Hydromorphone 1 Mg/Ml Injection IV 01/03/20 17:41 1 mg STAT ONE Administration Hydromorphone HCl Confirm 01/03/20 17:43 Hydromorphone 1 Mg/Ml Injection Administered 01/03/20 17:44 Dose 1 mg .ROUTE .STK-MED ONE Sodium Chloride 1,000 mls @ 999 mls/hr 01/03/20 17:32 01/03/20 19:15 Sodium Chloride 0.9% 1000 Ml IV 01/03/20 18:32 Infused .Q1H1M STA Infusion Sodium Chloride Confirm 01/03/20 17:43 Sodium Chloride 0.9% 1000 Ml Administered 01/03/20 17:44 Dose 1,000 mls @ ud .ROUTE .STK-MED ONE Promethazine HCl 12.5 mg 01/03/20 16:42 01/03/20 16:50 Phenergan 25 Mg Inj IM 01/03/20 16:43 12.5 mg STAT ONE Administration Promethazine HCl Confirm 01/03/20 16:47 Phenergan 25 Mg Inj Administered 01/03/20 16:48 Dose 25 mg .ROUTE .STK-MED ONE Lab/Rad Data: Laboratory Result Diagrams 01/03/20 17:30 01/03/20 17:30 Laboratory Results 01/03/20 01/03/20 01/03/20 Range/Units 18:40 18:40 17:58 WBC (4.0-10.5) K/mm3 RBC (4.1-5.4) M/mm3 Hgb (12.0-16.0) gm/dl Hct (35-47) % MCV (78-100) fl MCH (26-32) pg MCHC (32-36) g/dl RDW (11.5-14.0) % Plt Count (150-450) K/mm3 MPV (7.5-11.0) fl Gran % (36.0-66.0) % Eos # (Auto) (0-0.5) Absolute Lymphs (auto) (1.0-4.6) Absolute Monos (auto) (0.0-1.3) Lymphocytes % (24.0-44.0) % Monocytes % (0.0-12.0) % Eosinophils % (0.00-5.0) % Basophils % (0.0-0.4) % Absolute Granulocytes (1.4-6.9) Basophils # (0-0.4) Sodium (137-145) mmol/L Potassium (3.5-5.1) mmol/L Chloride (98-107) mmol/L Carbon Dioxide (22-30) mmol/L Anion Gap (5-15) MEQ/L BUN (7-17) mg/dL Creatinine (0.52-1.04) mg/dL Estimated GFR ML/MIN Glucose (74-106) mg/dL Lactic Acid 1.0 (0.4-2.0) Calcium (8.4-10.2) mg/dL Total Bilirubin (0.2-1.3) mg/dL AST (14-36) U/L ALT (0-35) U/L Alkaline Phosphatase (38-126) U/L Serum Total Protein (6.3-8.2) g/dL Albumin (3.5-5.0) g/dL Urine Color (YELLOW) Urine Appearance (CLEAR) Urine pH (5-6) Ur Specific [place] (1.005-1.025) Urine Protein (Negative) Urine Ketones (NEGATIVE) Urine Blood (0-5) Sj/ul Urine Nitrite (NEGATIVE) Urine Bilirubin (NEGATIVE) Urine Urobilinogen (0-1) mg/dL Ur Leukocyte Esterase (NEGATIVE) Urine WBC (Auto) (0-5) /HPF Urine RBC (Auto) (0-2) /HPF U Epithel Cells (Auto) (FEW) /HPF Urine Bacteria (Auto) (NEGATIVE) /HPF Urine Mucus (Auto) (NEGATIVE) /HPF Urine Culture Reflexed (NO) Urine Glucose (NEGATIVE) mg/dL CSF Color COLORLESS CSF Clarity CLEAR CSF WBC 2 (0-6) CU. MM CSF RBC 3 H (0-2) CU. MM CSF Protein (2) 33 (12-60) mg/dL CSF Glucose 52 (40-70) mg/dL Monoscreen (Negative) Influenza Type A Ag (NEGATIVE) Influenza Type B Ag (NEGATIVE) RSV (PCR) (Negative) Group A Strep Antibody (NEGATIVE) 01/03/20 01/03/20 01/03/20 Range/Units 17:30 17:30 17:30 WBC 7.5 (4.0-10.5) K/mm3 RBC 4.97 (4.1-5.4) M/mm3 Hgb 13.1 (12.0-16.0) gm/dl Hct 40.0 (35-47) % MCV 80.5 (78-100) fl MCH 26.4 (26-32) pg MCHC 32.8 (32-36) g/dl RDW 14.7 H (11.5-14.0) % Plt Count 379 (150-450) K/mm3 MPV 10.3 (7.5-11.0) fl Gran % 70.3 H (36.0-66.0) % Eos # (Auto) 0.10 (0-0.5) Absolute Lymphs (auto) 1.55 (1.0-4.6) Absolute Monos (auto) 0.56 (0.0-1.3) Lymphocytes % 20.6 L (24.0-44.0) % Monocytes % 7.4 (0.0-12.0) % Eosinophils % 1.3 (0.00-5.0) % Basophils % 0.4 (0.0-0.4) % Absolute Granulocytes 5.29 (1.4-6.9) Basophils # 0.03 (0-0.4) Sodium 139 (137-145) mmol/L Potassium 3.8 (3.5-5.1) mmol/L Chloride 108 H (98-107) mmol/L Carbon Dioxide 26 (22-30) mmol/L Anion Gap 8.8 (5-15) MEQ/L BUN 14 (7-17) mg/dL Creatinine 0.67 (0.52-1.04) mg/dL Estimated GFR > 60.0 ML/MIN Glucose 91 (74-106) mg/dL Lactic Acid (0.4-2.0) Calcium 9.3 (8.4-10.2) mg/dL Total Bilirubin 0.50 (0.2-1.3) mg/dL AST 46 H (14-36) U/L ALT 94 H (0-35) U/L Alkaline Phosphatase 100 (38-126) U/L Serum Total Protein 7.2 (6.3-8.2) g/dL Albumin 4.1 (3.5-5.0) g/dL Urine Color (YELLOW) Urine Appearance (CLEAR) Urine pH (5-6) Ur Specific [place] (1.005-1.025) Urine Protein (Negative) Urine Ketones (NEGATIVE) Urine Blood (0-5) Sj/ul Urine Nitrite (NEGATIVE) Urine Bilirubin (NEGATIVE) Urine Urobilinogen (0-1) mg/dL Ur Leukocyte Esterase (NEGATIVE) Urine WBC (Auto) (0-5) /HPF Urine RBC (Auto) (0-2) /HPF U Epithel Cells (Auto) (FEW) /HPF Urine Bacteria (Auto) (NEGATIVE) /HPF Urine Mucus (Auto) (NEGATIVE) /HPF Urine Culture Reflexed (NO) Urine Glucose (NEGATIVE) mg/dL CSF Color CSF Clarity CSF WBC (0-6) CU. MM CSF RBC (0-2) CU. MM CSF Protein (2) (12-60) mg/dL CSF Glucose (40-70) mg/dL Monoscreen NEGATIVE (Negative) Influenza Type A Ag (NEGATIVE) Influenza Type B Ag (NEGATIVE) RSV (PCR) (Negative) Group A Strep Antibody (NEGATIVE) 01/03/20 01/03/20 01/03/20 Range/Units 16:45 16:42 16:33 WBC (4.0-10.5) K/mm3 RBC (4.1-5.4) M/mm3 Hgb (12.0-16.0) gm/dl Hct (35-47) % MCV (78-100) fl MCH (26-32) pg MCHC (32-36) g/dl RDW (11.5-14.0) % Plt Count (150-450) K/mm3 MPV (7.5-11.0) fl Gran % (36.0-66.0) % Eos # (Auto) (0-0.5) Absolute Lymphs (auto) (1.0-4.6) Absolute Monos (auto) (0.0-1.3) Lymphocytes % (24.0-44.0) % Monocytes % (0.0-12.0) % Eosinophils % (0.00-5.0) % Basophils % (0.0-0.4) % Absolute Granulocytes (1.4-6.9) Basophils # (0-0.4) Sodium (137-145) mmol/L Potassium (3.5-5.1) mmol/L Chloride (98-107) mmol/L Carbon Dioxide (22-30) mmol/L Anion Gap (5-15) MEQ/L BUN (7-17) mg/dL Creatinine (0.52-1.04) mg/dL Estimated GFR ML/MIN Glucose (74-106) mg/dL Lactic Acid (0.4-2.0) Calcium (8.4-10.2) mg/dL Total Bilirubin (0.2-1.3) mg/dL AST (14-36) U/L ALT (0-35) U/L Alkaline Phosphatase (38-126) U/L Serum Total Protein (6.3-8.2) g/dL Albumin (3.5-5.0) g/dL Urine Color YELLOW (YELLOW) Urine Appearance SLIGHTLY CLOUDY (CLEAR) Urine pH 6.0 (5-6) Ur Specific [place] 1.020 (1.005-1.025) Urine Protein NEGATIVE (Negative) Urine Ketones NEGATIVE (NEGATIVE) Urine Blood SMALL (0-5) Sj/ul Urine Nitrite NEGATIVE (NEGATIVE) Urine Bilirubin NEGATIVE (NEGATIVE) Urine Urobilinogen NEGATIVE (0-1) mg/dL Ur Leukocyte Esterase NEGATIVE (NEGATIVE) Urine WBC (Auto) 3-5 (0-5) /HPF Urine RBC (Auto) 0-2 (0-2) /HPF U Epithel Cells (Auto) RARE (FEW) /HPF Urine Bacteria (Auto) NONE (NEGATIVE) /HPF Urine Mucus (Auto) SLIGHT (NEGATIVE) /HPF Urine Culture Reflexed NO (NO) Urine Glucose NEGATIVE (NEGATIVE) mg/dL CSF Color CSF Clarity CSF WBC (0-6) CU. MM CSF RBC (0-2) CU. MM CSF Protein (2) (12-60) mg/dL CSF Glucose (40-70) mg/dL Monoscreen (Negative) Influenza Type A Ag NEGATIVE (NEGATIVE) Influenza Type B Ag NEGATIVE (NEGATIVE) RSV (PCR) NEGATIVE (Negative) Group A Strep Antibody NOT DETECTED (NEGATIVE) - Progress Progress: improved, re-examined Air Movement: good Progress Note: 01/03/20 17:08 CAT scan of the head without contrast reveals no evidence of any acute intracranial abnormality. 01/03/20 17:39 Medical decision making: This patient's headache has improved from 10 out of 10 to 7 out of 10. However she still has neck pain and pressure that is relatively more significant. Therefore, we are going to do a lumbar tap to evaluate for possible meningitis. We will place an IV line, provide the patient with a liter of fluid and check some labs. 01/03/20 19:36 Medical decision making: Lumbar spinal tap was performed by nurse resizer operator. Results of the fluid have ruled out meningitis. We will provide her with another liter of fluid and then take home pain medication. Blood Culture(s) Obtained: No Antibiotics given: No Counseled pt/family regarding: lab results, diagnosis, need for follow-up, rad results - Departure Departure Disposition: Home Clinical Impression: Headache, Viral syndrome Condition: Stable Critical Care Time: No Referrals: GETACHEW BOTELLO [Primary Care Provider] - Additional Instructions: Drink plenty of fluids. Take your medication as prescribed. Add ibuprofen 600 mg with food 3 times a day for the next 5 days. Follow-up with your primary care physician tomorrow for further management of your headaches. Prescriptions: Ondansetron ODT 4 MG [Zofran Odt 4 mg] 4 mg PO Q6H PRN PRN #10 tab.rapdis PRN Reason: Vomiting
--- NOTE | 2020-01-03 16:34 | XRAY ---
Indication: Severe headache 2 days. Positive Covid 19. Multiple contiguous axial images obtained through the head without contrast. Comparison: None Normal appearing brain parenchyma, ventricles, and bony calvarium. Visualized paranasal sinuses and mastoid air cells are clear. Impression: Normal CT head without contrast exam.
[2020-01-03] MEDS ORDERED: Hydromorphone 1 mg/ml Injection ONE ×3 (16:46→19:58)
[2020-01-03] MEDS ORDERED: Phenergan 25 MG INJ ONE (16:47)
[2020-01-03] MEDS: Hydromorphone 1 mg/ml Injection IM ONE (16:50)
[2020-01-03] MEDS: Phenergan 25 MG INJ IM ONE (16:50)
[2020-01-03 17:07] LABS: Appearance SLIGHTLY CLOUDY (CLEAR); Bilirubin NEGATIVE (NEGATIVE); Blood SMALL Ery/ul (0-5); Epithelial Cells RARE /HPF (FEW); Glucose NEGATIVE (NEGATIVE); Ketones NEGATIVE (NEGATIVE); Leukocyte Esterase NEGATIVE (NEGATIVE); Mucus SLIGHT /HPF (NEGATIVE); Nitrite NEGATIVE (NEGATIVE); Protein,Urine Dip NEGATIVE (Negative); RBC 0-2 /HPF (0-2); Urobilinogen NEGATIVE mg/dL (0-1)
[2020-01-03 17:34] LABS: INFLUENZA A NEGATIVE (NEGATIVE); INFLUENZA B NEGATIVE (NEGATIVE); RESPIRATORY SYNCTIAL VIRUS NEGATIVE (Negative)
[2020-01-03] MEDS ORDERED: Sodium Chloride 0.9% 1000 ML 1,000 ML ONE ×2 (17:43→19:42)
[2020-01-03] MEDS: Hydromorphone 1 mg/ml Injection IV ONE ×2 (17:45→19:59)
[2020-01-03] MEDS: Sodium Chloride 0.9% 1000 ML 1,000 ML IV STA ×2 (17:46→19:43)
[2020-01-03 17:56] LABS: Absolute Neutrophil Ct (ANC) 5.29 (1.4-6.9); BASOPHIL % 0.4 % (0.0-0.4); Basophil (Absolute #) 0.03 (0-0.4); Eosinophil % 1.3 % (0.00-5.0); Hemoglobin 13.1 gm/dl (12.0-16.0); Lymphocyte (Absolute #) 1.55 (1.0-4.6); Lymphocytes % 20.6 % (24.0-44.0); Mean Cell Volume 80.5 fl (78-100); Mean Corpuscular Hemoglobin 26.4 pg (26-32); Mean Corpuscular Hgb Concent. 32.8 g/dl (32-36); Mean Platelet Volume 10.3 fl (7.5-11.0); Monocyte (Absolute #) 0.56 (0.0-1.3); Monocytes % 7.4 % (0.0-12.0); Neutrophil % 70.3 % (36.0-66.0); Platelet Count 379 K/mm3 (150-450); Red Blood Count 4.97 M/mm3 (4.1-5.4); Red Cell Distribution Width 14.7 % (11.5-14.0); White Blood Count 7.5 K/mm3 (4.0-10.5)
[2020-01-03 18:07] LABS: ALBUMIN 4.1 g/dL (3.5-5.0); ALKALINE PHOSPHATASE 100 U/L (38-126); ANION GAP 8.8 MEQ/L (5-15); BLOOD UREA NITROGEN 14 mg/dL (7-17); CHLORIDE 108 mmol/L (98-107); Calcium 9.3 mg/dL (8.4-10.2); Carbon Dioxide 26 mmol/L (22-30); Creatinine 1 0.67 mg/dL (0.52-1.04); EST GLOMERULAR FILTRATION RATE > 60.0 ML/MIN; Glucose 91 mg/dL (74-106); Potassium 3.8 mmol/L (3.5-5.1); SGOT/AST 46 U/L (14-36); SGPT/ALT 94 U/L (0-35); SODIUM 139 mmol/L (137-145); Total Protein 7.2 g/dL (6.3-8.2)
[2020-01-03 19:15] LABS: CSF GLUCOSE 52 mg/dL (40-70); CSF PROTEIN 33 mg/dL (12-60)
[2020-01-03 19:21] LABS: CSF CLARITY CLEAR; CSF COLOR COLORLESS
[2020-01-03 19:23] LABS: CSF RBCS 3 CU. MM (0-2); CSF WBCS 2 CU. MM (0-6)
[2020-01-03] MEDS ORDERED: PERCOCET TABLET 5/325MG ONE (19:57)
[2020-01-03] MEDS ORDERED: TORAdol 30 mg Injection ONE (19:57)
[2020-01-03] MEDS: PERCOCET TABLET 5/325MG PO STA (19:59)
[2020-01-03] MEDS: TORAdol 30 mg Injection IV ONE (19:59)
[2020-01-03 21:01] VITALS: BP 132/86; PULSE 84; O2SAT 95
== END 2020-01-03 21:11 | disposition home or self-care (01) ==
LOC: ED 15:22
DX: R51.9 Headache, unspecified (principal); B34.9 Viral infection, unspecified
CPT/HCPCS: 36000; 36415; 70450; 80053; 81001; 82945; 83605; 84157; 84436; 84443; 85025; 86308; 87070; 87631; 87651; 89050; 94760; 96360; 96372; 96374; 96375; 96376; 99285; J1170; J1885; J2550; A9270-GY

== ENCOUNTER 2020-01-05 18:29 | Emergency (ER) | payer OTHER ==
[2020-01-05] MEDS ORDERED: TORAdol 30 mg Injection IV ONE (19:25)
[2020-01-05] MEDS ORDERED: Ativan 2 MG/1 ML VIAL IV ONE (19:25)
[2020-01-05] MEDS ORDERED: BENADRYL 50 MG/ML IV ONE (19:25)
[2020-01-05] MEDS ORDERED: DEMEROL 25MG SYRINGE IV ONE (19:25)
[2020-01-05] MEDS ORDERED: Zofran 4 MG/2 ML VIAL IV ONE (19:26)
[2020-01-05] MEDS ORDERED: BENADRYL 50 MG/ML ONE (19:31)
[2020-01-05] MEDS ORDERED: Zofran 4 MG/2 ML VIAL ONE (19:31)
[2020-01-05] MEDS ORDERED: TORAdol 30 mg Injection ONE (19:31)
[2020-01-05] MEDS ORDERED: Ativan 2 MG/1 ML VIAL ONE (19:32)
[2020-01-05] MEDS ORDERED: DEMEROL 25MG SYRINGE ONE (19:32)
--- NOTE | 2020-01-05 19:32 | ERPHSYRPT ---
- History of Present Illness Time Seen by Provider: 01/05/20 19:00 Source: patient, family Exam Limitations: no limitations Patient Subjective Stated Complaint: Pt states "I have had a head ache since december. It is killing me. I was positive for covid on aviva 14 of december and did the quarenteen for 14 days but this headache is horrible." Triage Nursing Assessment: Pt presented alert and oriented X 3, skin pwd Pt ambulates with an upright steady gait, able to speak in clear full sentences. pt holding head, tearful. Physician History: Pt had COVID to go and that she says that she is having headache ever since. She states she is tired of this headache which comes daily. The patient was seen here couple days ago and to Dr. Dickinson. The complete work-up including the CSF also and could not find anything wrong. Patient try to see her PCP but could not see them so she came to the ER for some relief so that she can see her PCP tomorrow morning Timing/Duration: week(s) (4), constant Quality: pressure, stabbing, throbbing Head Pain Location: temporal, parietal Severity of Pain-Max: severe Severity of Pain-Current: severe Recent Head Trauma: no recent headache/trauma Modifying Factors: Improves With: exposure to light Associated Symptoms: nausea/vomiting, No confusion, No dizziness, No fatigue, No facial pain, No fever/chills, No flushing, No light-headedness, No loss of consciousness, No nasal congestion, No nasal drainage Previous symptoms: same symptoms as today, recently treated Allergies/Adverse Reactions: morphine Allergy (Verified 01/03/20 15:44) Home Medications: Levothyroxine Sodium 150 Mcg [Synthroid 150 Mcg] 274 mcg PO DAILY 12/27/18 [History] Hx Tetanus, Diphtheria Vaccination/Date Given: Yes Hx Influenza Vaccination/Date Given: No Hx Pneumococcal Vaccination/Date Given: No Immunizations Up to Date: Yes Travel Risk - International Travel Have you traveled outside of the country in past 3 weeks: No - Coronavirus Screening Are you exhibiting any of the following symptoms?: Yes Symptoms: Headaches/Body Aches/Fatigue Close contact with a COVID-19 positive Pt in past 14-21 Days: Yes - Review of Systems Constitutional: No Fever, No Chills Eyes: No Symptoms Ears, Nose, & Throat: No Symptoms Respiratory: No Cough, No Dyspnea Cardiac: No Chest Pain, No Edema, No Syncope Abdominal/Gastrointestinal: No Abdominal Pain, No Nausea, No Vomiting, No Diarrhea Genitourinary Symptoms: No Dysuria Musculoskeletal: No Back Pain, No Neck Pain Skin: No Rash Neurological: Headache, No Dizziness, No Focal Weakness, No Sensory Changes Psychological: No Symptoms Endocrine: No Symptoms All Other Systems: Reviewed and Negative - Past Medical History Pertinent Past Medical History: Yes Neurological History: No Pertinent History ENT History: No Pertinent History Cardiac History: No Pertinent History Respiratory History: No Pertinent History Endocrine Medical History: Hypothyroidism, Thyroid Cancer Musculoskeletal History: No Pertinent History GI Medical History: Polyps History: No Pertinent History Psycho-Social History: No Pertinent History Female Reproductive Disorders: Other Other Medical History: OVARIAN CYSTS - Past Surgical History Past Surgical History: Yes Neuro Surgical History: No Pertinent History Cardiac: No Pertinent History Respiratory: No Pertinent History Gastrointestinal: Cholecystectomy, Other Genitourinary: No Pertinent History Musculoskeletal: No Pertinent History Female Surgical History: Tubal Ligation Other Surgical History: thyroidectomy 2004. thymus removal. intestinal polyps removed. ovarian cysts removed - Social History Smoking Status: Never smoker Exposure to second hand smoke: No Drug Use: none Patient Lives Alone: No - Female History Hx Last Menstrual Period: 12/29/2019 Hx Now: No - Nursing Vital Signs Nursing Vital Signs: Initial Vital Signs Temperature 98.1 F 01/05/20 18:41 Pulse Rate 97 H 01/05/20 18:41 Respiratory Rate 22 01/05/20 18:41 Blood Pressure 180/109 01/05/20 18:41 O2 Sat by Pulse Oximetry 98 01/05/20 18:41 Pain Scale Pain Intensity 9 - Physical Exam General Appearance: no apparent distress, other (Patient examined in presence of her ) Eye Exam: PERRL/EOMI Ears, Nose, Throat Exam: normal ENT inspection, moist mucous membranes Neck Exam: normal inspection, supple, full range of motion, No meningismus Respiratory Exam: normal breath sounds, lungs clear Cardiovascular Exam: regular rate/rhythm, normal heart sounds Gastrointestinal/Abdominal Exam: soft, No tenderness, No distention Back Exam: normal inspection, normal range of motion Mental Status Exam: alert, oriented x 3, cooperative finish photographer Exam: normal speech, PERRL, No facial droop Coordination/Gait Exam: normal cerebellar function Motor/Sensory Exam: no motor deficit, no sensory deficit Skin Exam: normal color, warm, dry, No rash SpO2: 98 - Course Nursing assessment & vital signs reviewed: Yes Ordered Tests: Active Orders 24 hr Category Date Time Status IV Insertion STAT Care 01/05/20 19:24 Active Medication Summary Discontinued Medications Generic Name Dose Route Start Last Admin Trade Name Raminq PRN Reason Stop Dose Admin Diphenhydramine HCl 25 mg 01/05/20 19:25 01/05/20 19:40 Benadryl 50 Mg/Ml IV 01/05/20 19:26 25 mg STAT ONE Administration Diphenhydramine HCl Confirm 01/05/20 19:31 Benadryl 50 Mg/Ml Administered 01/05/20 19:32 Dose 50 mg .ROUTE .STK-MED ONE Ketorolac Tromethamine 15 mg 01/05/20 19:25 01/05/20 19:40 Toradol 30 Mg Injection IV 01/05/20 19:26 15 mg STAT ONE Administration Ketorolac Tromethamine Confirm 01/05/20 19:31 Toradol 30 Mg Injection Administered 01/05/20 19:32 Dose 30 mg .ROUTE .STK-MED ONE Lorazepam 1 mg 01/05/20 19:25 01/05/20 19:39 Ativan 2 Mg/1 Ml Vial IV 01/05/20 19:26 1 mg STAT ONE Administration Lorazepam Confirm 01/05/20 19:32 Ativan 2 Mg/1 Ml Vial Administered 01/05/20 19:33 Dose 2 mg .ROUTE .STK-MED ONE Meperidine HCl 25 mg 01/05/20 19:25 01/05/20 19:40 Demerol 25mg Syringe IV 01/05/20 19:26 25 mg STAT ONE Administration Meperidine HCl Confirm 01/05/20 19:32 Demerol 25mg Syringe Administered 01/05/20 19:33 Dose 25 mg .ROUTE .STK-MED ONE Ondansetron HCl 4 mg 01/05/20 19:26 01/05/20 19:39 Zofran 4 Mg/2 Ml Vial IV 01/05/20 19:27 4 mg STAT ONE Administration Ondansetron HCl Confirm 01/05/20 19:31 Zofran 4 Mg/2 Ml Vial Administered 01/05/20 19:32 Dose 4 mg .ROUTE .STK-MED ONE - Progress Progress: improved, re-examined Air Movement: good Progress Note: 01/05/20 20:20 Since her headache is almost gone. Patient is feeling better. She wants to go home. No acute life or limb threatening condition on discharge. Agreed to follow-up with PCP tomorrow morning. Blood Culture(s) Obtained: No Antibiotics given: No Counseled pt/family regarding: diagnosis, need for follow-up - Departure Departure Disposition: Home Clinical Impression: Headache Qualifiers: Headache type: unspecified Headache chronicity pattern: chronic headache Intractability: intractable Qualified Code(s): R51.9 - Headache, unspecified; G89.29 - Other chronic pain Condition: Good Critical Care Time: No Referrals: GETACHEW BOTELLO [Primary Care Provider] - Follow Up with PCP
[2020-01-05 20:03] VITALS: PULSE 87
[2020-01-05 20:43] VITALS: BP 125/76; O2SAT 97
== END 2020-01-05 20:38 | disposition home or self-care (01) ==
LOC: ED 18:29
DX: R51.9 Headache, unspecified (principal); R11.2 Nausea with vomiting, unspecified; Z86.19 Personal history of other infectious and parasitic diseases; Z79.899 Other long term (current) drug therapy; Z85.850 Personal history of malignant neoplasm of thyroid; E03.9 Hypothyroidism, unspecified
CPT/HCPCS: 36000; 96374; 96375; 99284; J1200; J1885; J2060; J2175; J2405

== ENCOUNTER 2020-02-12 21:13 | Emergency (ER) | payer MEDICARE, OTHER ==
[2020-02-12] MEDS ORDERED: BENADRYL 50 MG/ML IM ONE (21:25)
[2020-02-12] MEDS ORDERED: Phenergan 25 MG INJ IM ONE (21:25)
[2020-02-12] MEDS ORDERED: TORAdol 30 mg Injection IM ONE (21:25)
--- NOTE | 2020-02-12 21:32 | ERPHSYRPT ---
- History of Present Illness Time Seen by Provider: 02/12/20 21:30 Source: patient Exam Limitations: no limitations Physician History: -year-old female with significant past medical history of thyroid cancer and headache Covid virus detected in December started having headaches since exposure to Covid virus. But recently she was seen by neurologist and diagnosed having migraine headache and was started on monoclonal antibody injection last week but without any help. Her headache got worse so she came to the emergency room. She is complaining of some visual problems and sometimes sudden loss of her vision for few seconds before her headache starts. Timing/Duration: today Quality: throbbing Head Pain Location: temporal Severity of Pain-Max: moderate Severity of Pain-Current: moderate Recent Head Trauma: frequent headaches Associated Symptoms: light-headedness, vision changes, visual disturbance, No loss of consciousness Previous symptoms: no prior history Allergies/Adverse Reactions: morphine Allergy (Verified 02/12/20 21:17) Home Medications: Levothyroxine Sodium [Tirosint-Sarika] 1 PO DAILY 02/12/20 [History] Topiramate [Topamax] 1 tab PO DAILY 02/12/20 [History] Hx Tetanus, Diphtheria Vaccination/Date Given: Yes Hx Influenza Vaccination/Date Given: No Hx Pneumococcal Vaccination/Date Given: No - Review of Systems Constitutional: No Fever, No Chills Eyes: No Symptoms Ears, Nose, & Throat: No Symptoms Respiratory: No Cough, No Dyspnea Cardiac: No Chest Pain, No Edema, No Syncope Abdominal/Gastrointestinal: No Abdominal Pain, No Nausea, No Vomiting, No Diarrhea Genitourinary Symptoms: No Dysuria Musculoskeletal: No Back Pain, No Neck Pain Skin: No Rash Neurological: Headache, No Dizziness, No Focal Weakness, No Gait Changes, No Sensory Changes, No Speech Changes Psychological: No Symptoms Endocrine: No Symptoms All Other Systems: Reviewed and Negative - Past Medical History Pertinent Past Medical History: Yes Neurological History: No Pertinent History ENT History: No Pertinent History Cardiac History: No Pertinent History Respiratory History: No Pertinent History Endocrine Medical History: Hypothyroidism, Thyroid Cancer Musculoskeletal History: No Pertinent History GI Medical History: Polyps History: No Pertinent History Psycho-Social History: No Pertinent History Female Reproductive Disorders: Other Other Medical History: OVARIAN CYSTS - Past Surgical History Past Surgical History: Yes Neuro Surgical History: No Pertinent History Cardiac: No Pertinent History Respiratory: No Pertinent History Gastrointestinal: Cholecystectomy, Other Genitourinary: No Pertinent History Musculoskeletal: No Pertinent History Female Surgical History: Tubal Ligation Other Surgical History: thyroidectomy 2005. thymus removal. intestinal polyps removed. ovarian cysts removed - Social History Smoking Status: Never smoker Exposure to second hand smoke: No Drug Use: none Patient Lives Alone: No - Nursing Vital Signs Nursing Vital Signs: Initial Vital Signs Temperature 98.2 F 02/12/20 21:13 Pulse Rate 113 H 02/12/20 21:13 Respiratory Rate 18 02/12/20 21:13 Blood Pressure 176/106 02/12/20 21:13 O2 Sat by Pulse Oximetry 99 02/12/20 21:13 Pain Scale Pain Intensity 8 - Physical Exam General Appearance: no apparent distress Eye Exam: PERRL/EOMI Ears, Nose, Throat Exam: normal ENT inspection, moist mucous membranes Neck Exam: normal inspection, supple, full range of motion, No meningismus Respiratory Exam: normal breath sounds, lungs clear Cardiovascular Exam: regular rate/rhythm, normal heart sounds Gastrointestinal/Abdominal Exam: soft, No tenderness, No distention Back Exam: normal inspection, normal range of motion Mental Status Exam: alert, oriented x 3, cooperative nurse sane Exam: normal speech, PERRL, No facial droop Coordination/Gait Exam: normal cerebellar function Motor/Sensory Exam: no motor deficit, no sensory deficit Skin Exam: normal color, warm, dry, No rash - Course Nursing assessment & vital signs reviewed: Yes Ordered Tests: Medication Summary Discontinued Medications Generic Name Dose Route Start Last Admin Trade Name Freq PRN Reason Stop Dose Admin Diphenhydramine HCl 25 mg 02/12/20 21:25 02/12/20 21:40 Benadryl 50 Mg/Ml IM 02/12/20 21:26 25 mg STAT ONE Administration Diphenhydramine HCl Confirm 02/12/20 21:34 Benadryl 50 Mg/Ml Administered 02/12/20 21:35 Dose 50 mg .ROUTE .STK-MED ONE Ketorolac Tromethamine 60 mg 02/12/20 21:25 02/12/20 21:36 Toradol 30 Mg Injection IM 02/12/20 21:26 60 mg STAT ONE Administration Ketorolac Tromethamine Confirm 02/12/20 21:34 Toradol 30 Mg Injection Administered 02/12/20 21:35 Dose 60 mg .ROUTE .STK-MED ONE Promethazine HCl 25 mg 02/12/20 21:25 02/12/20 21:39 Phenergan 25 Mg Inj IM 02/12/20 21:26 25 mg STAT ONE Administration Promethazine HCl Confirm 02/12/20 21:34 Phenergan 25 Mg Inj Administered 02/12/20 21:35 Dose 25 mg .ROUTE .STK-MED ONE - Progress Progress: improved Air Movement: good Counseled pt/family regarding: diagnosis, need for follow-up - Departure Departure Disposition: Home Clinical Impression: Headache Qualifiers: Headache type: paroxysmal hemicrania Headache chronicity pattern: episodic headache Intractability: intractable Qualified Code(s): 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 At that time you were treated for an emergent condition, during your visit Laboratory, Radiology and/or other procedures may have been ordered. It is very important that you follow-up with your Primary Care Physician GETACHEW BOTELLO within the next 24-48 hours to review your Emergency Room visit and the final results of testing that was ordered. Some test results such as Urine Cultures, Blood Cultures, and other cultures if ordered will not be finalized for 24-48 hours. If you do not have a Primary Care Provider please call the medical records department at [phone] ext [phone] to obtain a copy of your results or you may sign into our patient portal to obtain these results by visiting us @ [email or web address] and completing the following steps: 1. Click on the Patient Portal link 2. Click the Patient Self Enrollment Link to complete the enrollment form and entering your 3. Once the enrollment form is completed you will receive an email with a temporary ID and password at the email address you provided. 4. Next choose a user name and password. Your user name must be at least 4 characters long and your password must be at least 4 characters long. 5. Choose a security question from the list and provide your answer to the question. If you already have signed into the Health Portal you may access your Health Care Information 23/09 by the following steps: 1. Login to our website @ [email or web address] 2. Enter your original user name and password. FAQS The [facility] Health Portal is an online tool that contains your Lab Results, Radiology Reports, Visit History, Discharge Instructions and Health Summary Lab and Radiology Results will not be available for 72 hours on the portal. The Portal is a secure site, passwords are encryted and URLs are re-written so they cannot be copied and pasted. You and authorized family members are the only ones who can access your Portal. Also there is a timeout feature that protects your information if you leave the Portal page open. If you have technical difficulty please use the Contact Us link on the page this will allow you to submit any questions you have regarding the Portal or you may contact the Medical Record Department at [phone] ext [phone].
[2020-02-12] MEDS ORDERED: TORAdol 30 mg Injection ONE (21:34)
[2020-02-12] MEDS ORDERED: Phenergan 25 MG INJ ONE (21:34)
[2020-02-12] MEDS ORDERED: BENADRYL 50 MG/ML ONE (21:34)
[2020-02-12 22:09] VITALS: BP 133/92; PULSE 86; O2SAT 98
== END 2020-02-12 22:08 | disposition home or self-care (01) ==
LOC: ED 21:13
DX: R51.9 Headache, unspecified (principal); R59.1 Generalized enlarged lymph nodes; Z85.850 Personal history of malignant neoplasm of thyroid; H53.9 Unspecified visual disturbance
CPT/HCPCS: 96372; 99284; J1200; J1885; J2550

== ENCOUNTER 2020-04-24 02:03 | Emergency (ER) | payer MEDICARE ==
[2020-04-24] MEDS ORDERED: Zofran 4 MG/2 ML VIAL IV ONE (02:31)
[2020-04-24] MEDS ORDERED: Hydromorphone 1 mg/ml Injection IV ONE (02:31)
[2020-04-24] MEDS ORDERED: Zofran 4 MG/2 ML VIAL ONE (02:36)
[2020-04-24] MEDS ORDERED: Hydromorphone 1 mg/ml Injection ONE (02:36)
[2020-04-24 02:49] LABS: Appearance CLEAR (CLEAR); Bilirubin NEGATIVE (NEGATIVE); Blood MODERATE Ery/ul (0-5); Epithelial Cells RARE /HPF (FEW); Glucose NEGATIVE (NEGATIVE); Ketones NEGATIVE (NEGATIVE); Leukocyte Esterase NEGATIVE (NEGATIVE); Mucus SLIGHT /HPF (NEGATIVE); Nitrite NEGATIVE (NEGATIVE); Protein,Urine Dip NEGATIVE (Negative); Specific Gravity 1.006 (1.005-1.025); Urobilinogen NEGATIVE mg/dL (0-1)
[2020-04-24 02:51] LABS: Bacteria NONE SEEN /HPF (NEGATIVE)
[2020-04-24 02:51] LABS: Absolute Neutrophil Ct (ANC) 2.91 (1.4-6.9); BASOPHIL % 1.1 % (0.0-0.4); Basophil (Absolute #) 0.07 (0-0.4); Eosinophil % 4.4 % (0.00-5.0); Eosinophil (Absolute #) 0.27 (0-0.5); Hematocrit 37.9 % (35-47); Hemoglobin 12.3 gm/dl (12.0-16.0); Lymphocyte (Absolute #) 2.47 (1.0-4.6); Lymphocytes % 40.4 % (24.0-44.0); Mean Cell Volume 82.6 fl (78-100); Mean Corpuscular Hemoglobin 26.8 pg (26-32); Mean Corpuscular Hgb Concent. 32.5 g/dl (32-36); Monocyte (Absolute #) 0.39 (0.0-1.3); Monocytes % 6.4 % (0.0-12.0); Neutrophil % 47.7 % (36.0-66.0); Platelet Count 312 K/mm3 (150-450); Red Blood Count 4.59 M/mm3 (4.1-5.4); Red Cell Distribution Width 14.3 % (11.5-14.0); White Blood Count 6.1 K/mm3 (4.0-10.5)
--- NOTE | 2020-04-24 02:56 | ERPHSYRPT ---
- History of Present Illness Patient Subjective Stated Complaint: Patient states " I started having mid belly pain several hours ago and I tried lying down and took some IBU to help but it was ineffective and the pain started going into the right side of my ABD and the pain became worse and I started having dry heaves and vomiting". Triage Nursing Assessment: Patient arrived to ED and ambulated back to room without difficulty. Urine collected. Urine pale yellow in color. Patient A/O times 4. Patient able to follow directions without difficulty. Lungs clear bilateral A/P throughout. Patient denies chest pain or SOB. Cap refill < 3 seconds. No S/S of respiratory distress noted. + BS times 4 quads. BS hyperactive. ABD soft but tender upon palpitation. Patient denies any radiating pain to flank. Patient denies any pain or burning upon urination. Patient states food/fluid intake is her normal. + pedal and radial pulses noted bilateral. No dependent edema noted. Skin turgor < 3 seconds. Oral mucosa/lips moist. No S/S of dehydration noted. Patient states last BM yesterday 04/22/20 and it was her norm. Patient stated her emesis was yellow color and denies any black or red emesis. Patient afebrile. Patient hypertensive upon arrival to ER with no HX HTN. Allergies/Adverse Reactions: morphine Allergy (Verified 04/24/20 02:11) Home Medications: Levothyroxine Sodium [Tirosint-Sarika] 1 mcg PO DAILY 02/12/20 [History] Topiramate [Topamax] 50 tab PO DAILY 02/12/20 [History] Hx Tetanus, Diphtheria Vaccination/Date Given: Yes Hx Influenza Vaccination/Date Given: No Hx Pneumococcal Vaccination/Date Given: No Immunizations Up to Date: Yes Travel Risk - International Travel Have you traveled outside of the country in past 3 weeks: No - Coronavirus Screening Are you exhibiting any of the following symptoms?: No Close contact with a COVID-19 positive Pt in past 14-21 Days: No - Review of Systems Constitutional: No Fever, No Chills Cardiac: No Chest Pain Abdominal/Gastrointestinal: Abdominal Pain, Nausea, Vomiting, Appetite Changes, No Diarrhea, No Constipation Genitourinary Symptoms: No Dysuria, No Frequency, No Vaginal Bleeding, No Vaginal Discharge Musculoskeletal: No Symptoms Skin: No Symptoms Neurological: No Symptoms Psychological: No Symptoms Endocrine: No Symptoms Hematologic/Lymphatic: No Symptoms - Past Medical History Pertinent Past Medical History: Yes Neurological History: No Pertinent History ENT History: No Pertinent History Cardiac History: No Pertinent History Respiratory History: No Pertinent History Endocrine Medical History: Hypothyroidism, Thyroid Cancer Musculoskeletal History: No Pertinent History GI Medical History: Polyps History: No Pertinent History Psycho-Social History: No Pertinent History Female Reproductive Disorders: Other Other Medical History: OVARIAN CYSTS - Past Surgical History Past Surgical History: Yes Neuro Surgical History: No Pertinent History Cardiac: No Pertinent History Respiratory: No Pertinent History Gastrointestinal: Cholecystectomy, Other Genitourinary: No Pertinent History Musculoskeletal: No Pertinent History Female Surgical History: Tubal Ligation Other Surgical History: thyroidectomy 2004. thymus removal. intestinal polyps removed. ovarian cysts removed - Social History Smoking Status: Never smoker Exposure to second hand smoke: Yes Drug Use: none Patient Lives Alone: No - Female History Hx Last Menstrual Period: Tubal Hx Now: No - Nursing Vital Signs Nursing Vital Signs: Initial Vital Signs Temperature 98.4 F 04/24/20 02:15 Pulse Rate 88 04/24/20 02:15 Respiratory Rate 22 04/24/20 02:15 Blood Pressure 163/125 04/24/20 02:15 O2 Sat by Pulse Oximetry 98 04/24/20 02:15 Pain Scale Pain Intensity 4 - Physical Exam General Appearance: no apparent distress, alert Eye Exam: EOM palsy/anisocoria, No scleral icterus Ears, Nose, Throat Exam: moist mucous membranes Neck Exam: No JVD Respiratory Exam: normal breath sounds, lungs clear, No chest tenderness, No respiratory distress Cardiovascular Exam: regular rate/rhythm, normal heart sounds, normal peripheral pulses, capillary refill <2 sec, No edema, No pulse deficit Gastrointestinal/Abdomen Exam: soft, tenderness, other (LLQ, periumbilical, and RLQ abdominal pain with point of maximum tenderness being at the RLQ. Well- healed abdominal scarring noted from prior surgery), No distention, No mass, No guarding Pelvic Exam: not done Back Exam: normal inspection Extremity Exam: normal inspection Neurologic Exam: alert, oriented x 3, cooperative Skin Exam: normal color, warm, dry, No rash, No petechiae, No jaundice, No cyanosis, No jaundice SpO2 Interpretation: normal SpO2: 98 O2 Delivery: Room Air - Course Nursing assessment & vital signs reviewed: Yes - CT Exams Abdomen/Pelvis CT Interpretation: Negative, Tele-radiologist Report Ordered Tests: Active Orders 24 hr Category Date Time Status IV Insertion STAT Care 04/24/20 02:31 Active NPO (ED) STAT Care 04/24/20 02:32 Active ABDOMEN AND PELVIS W CONTRAST [CT] Stat Exams 04/24/20 02:38 Taken BMP Stat Lab 04/24/20 02:48 Completed CBC W DIFF Stat Lab 04/24/20 02:48 Completed HCG,QUALITATIVE URINE Stat Lab 04/24/20 02:34 Completed Hepatic Function Panel Stat Lab 04/24/20 02:48 Completed LIPASE Stat Lab 04/24/20 02:48 Completed UA W/RFX UR CULTURE Stat Lab 04/24/20 02:34 Completed Medication Summary Discontinued Medications Generic Name Dose Route Start Last Admin Trade Name Freq PRN Reason Stop Dose Admin Hydromorphone HCl 0.5 mg 04/24/20 02:31 04/24/20 02:37 Hydromorphone 1 Mg/Ml Injection IV 04/24/20 02:32 0.5 mg STAT ONE Administration Hydromorphone HCl Confirm 04/24/20 02:36 Hydromorphone 1 Mg/Ml Injection Administered 04/24/20 02:37 Dose 1 mg .ROUTE .STK-MED ONE Ondansetron HCl 4 mg 04/24/20 02:31 04/24/20 02:36 Zofran 4 Mg/2 Ml Vial IV 04/24/20 02:32 4 mg STAT ONE Administration Ondansetron HCl Confirm 04/24/20 02:36 Zofran 4 Mg/2 Ml Vial Administered 04/24/20 02:37 Dose 4 mg .ROUTE .STK-MED ONE Lab/Rad Data: Laboratory Result Diagrams 04/24/20 02:48 04/24/20 02:48 Laboratory Results 04/24/20 04/24/20 04/24/20 Range/Units 02:48 02:48 02:34 WBC 6.1 (4.0-10.5) K/mm3 RBC 4.59 (4.1-5.4) M/mm3 Hgb 12.3 (12.0-16.0) gm/dl Hct 37.9 (35-47) % MCV 82.6 (78-100) fl MCH 26.8 (26-32) pg MCHC 32.5 (32-36) g/dl RDW 14.3 H (11.5-14.0) % Plt Count 312 (150-450) K/mm3 MPV 10.0 (7.5-11.0) fl Gran % 47.7 (36.0-66.0) % Eos # (Auto) 0.27 (0-0.5) Absolute Lymphs (auto) 2.47 (1.0-4.6) Absolute Monos (auto) 0.39 (0.0-1.3) Lymphocytes % 40.4 (24.0-44.0) % Monocytes % 6.4 (0.0-12.0) % Eosinophils % 4.4 (0.00-5.0) % Basophils % 1.1 (0.0-0.4) % Absolute Granulocytes 2.91 (1.4-6.9) Basophils # 0.07 (0-0.4) Sodium 139 (137-145) mmol/L Potassium 3.7 (3.5-5.1) mmol/L Chloride 107 (98-107) mmol/L Carbon Dioxide 24 (22-30) mmol/L Anion Gap 11.3 (5-15) MEQ/L BUN 11 (7-17) mg/dL Creatinine 0.97 (0.52-1.04) mg/dL Estimated GFR > 60.0 ML/MIN Glucose 102 (74-106) mg/dL Calcium 9.1 (8.4-10.2) mg/dL Total Bilirubin 0.50 (0.2-1.3) mg/dL Direct Bilirubin 0 (0.0-0.4) mg/dL AST 21 (14-36) U/L ALT 16 (0-35) U/L Alkaline Phosphatase 73 (38-126) U/L Serum Total Protein 7.6 (6.3-8.2) g/dL Albumin 4.5 (3.5-5.0) g/dL Lipase 127 (23-300) U/L Urine Color (YELLOW) Urine Appearance (CLEAR) Urine pH (5-6) Ur Specific [place] (1.005-1.025) Urine Protein (Negative) Urine Ketones (NEGATIVE) Urine Blood (0-5) Sj/ul Urine Nitrite (NEGATIVE) Urine Bilirubin (NEGATIVE) Urine Urobilinogen (0-1) mg/dL Ur Leukocyte Esterase (NEGATIVE) Urine WBC (Auto) (0-5) /HPF Urine RBC (Auto) (0-2) /HPF U Epithel Cells (Auto) (FEW) /HPF Urine Bacteria (Auto) (NEGATIVE) /HPF Urine Mucus (Auto) (NEGATIVE) /HPF Urine Culture Reflexed (NO) Urine Glucose (NEGATIVE) mg/dL Urine HCG, Qual NEGATIVE (Negative) 04/24/20 Range/Units 02:34 WBC (4.0-10.5) K/mm3 RBC (4.1-5.4) M/mm3 Hgb (12.0-16.0) gm/dl Hct (35-47) % MCV (78-100) fl MCH (26-32) pg MCHC (32-36) g/dl RDW (11.5-14.0) % Plt Count (150-450) K/mm3 MPV (7.5-11.0) fl Gran % (36.0-66.0) % Eos # (Auto) (0-0.5) Absolute Lymphs (auto) (1.0-4.6) Absolute Monos (auto) (0.0-1.3) Lymphocytes % (24.0-44.0) % Monocytes % (0.0-12.0) % Eosinophils % (0.00-5.0) % Basophils % (0.0-0.4) % Absolute Granulocytes (1.4-6.9) Basophils # (0-0.4) Sodium (137-145) mmol/L Potassium (3.5-5.1) mmol/L Chloride (98-107) mmol/L Carbon Dioxide (22-30) mmol/L Anion Gap (5-15) MEQ/L BUN (7-17) mg/dL Creatinine (0.52-1.04) mg/dL Estimated GFR ML/MIN Glucose (74-106) mg/dL Calcium (8.4-10.2) mg/dL Total Bilirubin (0.2-1.3) mg/dL Direct Bilirubin (0.0-0.4) mg/dL AST (14-36) U/L ALT (0-35) U/L Alkaline Phosphatase (38-126) U/L Serum Total Protein (6.3-8.2) g/dL Albumin (3.5-5.0) g/dL Lipase (23-300) U/L Urine Color STRAW (YELLOW) Urine Appearance CLEAR (CLEAR) Urine pH 6.0 (5-6) Ur Specific [place] 1.006 (1.005-1.025) Urine Protein NEGATIVE (Negative) Urine Ketones NEGATIVE (NEGATIVE) Urine Blood MODERATE (0-5) Sj/ul Urine Nitrite NEGATIVE (NEGATIVE) Urine Bilirubin NEGATIVE (NEGATIVE) Urine Urobilinogen NEGATIVE (0-1) mg/dL Ur Leukocyte Esterase NEGATIVE (NEGATIVE) Urine WBC (Auto) NONE (0-5) /HPF Urine RBC (Auto) NONE (0-2) /HPF U Epithel Cells (Auto) RARE (FEW) /HPF Urine Bacteria (Auto) NONE SEEN (NEGATIVE) /HPF Urine Mucus (Auto) SLIGHT (NEGATIVE) /HPF Urine Culture Reflexed NO (NO) Urine Glucose NEGATIVE (NEGATIVE) mg/dL Urine HCG, Qual (Negative) - Progress Progress: improved Progress Note: 04/24/20 02:40 Nontoxic appearance. The patient presents with abdominal pain in context of nausea and vomiting with tenderness to the bilateral lower quadrants and periumbilical region. Differential at this time includes appendicitis, pancreatitis, mass, small bowel obstruction, obstructing kidney stone, pyelonephritis, UTI, abscess, hernia ectopic . Labs to include CBC, BMP, UA, UPT lipase LFTs and will obtain a CT of her abdomen pelvis for further evaluation. 04/24/20 04:17 The patient was reassessed to find her pain subsided. She was updated with her workup findings and discharge plan. She is calling for a ride and when her arrives she will be discharged home. She was instructed to return to the ED if her pain continues or worsens in the over the next 24-36 hrs to be re- evaluated. She is currently at the end of her menstrual cycle which likely explains her hematuria. Counseled pt/family regarding: lab results, diagnosis, need for follow-up, rad results - Departure Departure Disposition: Home Clinical Impression: Abdominal pain, Nausea and vomiting Condition: Stable Critical Care Time: No Referrals: GETACHEW BOTELLO [Primary Care Provider] - Instructions: Acute Abdomen (Belly Pain), Adult (DC), Nausea and Vomiting, Adult (DC) Prescriptions: Dicyclomine HCl 20 mg [Bentyl 20 mg] 20 mg PO Q6HPRN PRN #20 tablet PRN Reason: Pain Ondansetron ODT 4 MG [Zofran Odt 4 mg] 4 mg PO Q6H PRN PRN #10 tab.rapdis PRN Reason: Nausea/Vomiting
[2020-04-24 03:03] LABS: ALBUMIN 4.5 g/dL (3.5-5.0); ALKALINE PHOSPHATASE 73 U/L (38-126); ANION GAP 11.3 MEQ/L (5-15); BLOOD UREA NITROGEN 11 mg/dL (7-17); CHLORIDE 107 mmol/L (98-107); Calcium 9.1 mg/dL (8.4-10.2); Carbon Dioxide 24 mmol/L (22-30); Creatinine 1 0.97 mg/dL (0.52-1.04); EST GLOMERULAR FILTRATION RATE > 60.0 ML/MIN; Glucose 102 mg/dL (74-106); LIPASE 127 U/L (23-300); Potassium 3.7 mmol/L (3.5-5.1); SGOT/AST 21 U/L (14-36); SGPT/ALT 16 U/L (0-35); SODIUM 139 mmol/L (137-145); Total Protein 7.6 g/dL (6.3-8.2)
[2020-04-24 03:04] LABS: Direct Bilirubin 0 mg/dL (0.0-0.4)
[2020-04-24 04:22] VITALS: BP 148/89; PULSE 69; O2SAT 98
--- NOTE | 2020-04-24 08:52 | XRAY ---
Indication: Right lower quadrant pain. Multiple contiguous axial images obtained through the abdomen and pelvis using 80 cc Isovue 370 contrast. Comparison: December 30, 2018. Lung bases remain clear again with incidental left posterior subcentimeter calcified granuloma. Heart is not enlarged. Noncontrasted stomach and bowel loops remain nonobstructed. Normal air-filled appendix. There is now mild diffuse scattered colonic fecal debris throughout. Again previous cholecystectomy. No free fluid/air. Remaining liver, pancreas, spleen, adrenal glands, kidneys, ureters, bladder, uterus, and aorta appear unremarkable. No pathologic retroperitoneal lymphadenopathy. Osseous structures intact. Impression: 1. New diffuse fecal stasis. 2. Stable left lower lobe calcified granuloma. 3. Remaining CT abdomen/pelvis with contrast exam is negative. Comment: Preliminary interpretation was made by [facility]. No critical discrepancy.
== END 2020-04-24 04:31 | disposition home or self-care (01) ==
LOC: ED 02:03
DX: R10.9 Unspecified abdominal pain (principal); R11.2 Nausea with vomiting, unspecified; E03.9 Hypothyroidism, unspecified
CPT/HCPCS: 36000; 36415; 74177; 80048; 80076; 81001; 83690; 84703; 85025; 96374; 99284; J1170; J2405

== ENCOUNTER 2022-01-22 23:42 | Emergency (ER) | payer MEDICARE ==
--- NOTE | 2022-01-23 01:00 | ERPHSYRPT ---
- History of Present Illness Time Seen by Provider: 01/23/22 00:05 Historian: patient Patient Subjective Stated Complaint: pt states "I was just at [facility] for this pain under my left ribs. They told me it was ulcers. I seen were they said it was pericardial effusion. When I called back and asked them they said it was not a big deal. It feels like a balloon behind my left rib." Triage Nursing Assessment: pt ambulated into the er; pt is anxious and tearful; pt is axo x4; c/o left rib pain; pt states pressure under left rib; clear lung sounds in all lobes; clear, bounding apical heart tone; strong celia radial pulses; strong celia pedal pulses; no edema present; good cap refill to all extremities; hypertensive; skin is PDW Physician History: This is a 41-year-old white female who was seen in [facility] in [facility] in the emergency department prior to arrival to this facility because of left upper quadrant discomfort. She her symptoms have been present for approximately 3 to 4 days. It is more like a pressure or fullness. Symptoms are worse with eating and worse with sitting upright. She had an extensive work-up there including CAT scan of the abdomen pelvis with and without contrast which showed a small pericardial effusion. Her CBC CMP and urinalysis were not emergent or acute. I reviewed the emergency department documents from [facility] in [facility]. Patient was discharged with a diagnosis of peptic ulcer disease and was given a prescription to help with this diagnosis. Timing/Duration: yesterday Activities at Onset: none Quality: fullness, pressure Pain Radiation: LUQ Severity of Pain-Max: mild Severity of Pain-Current: mild Associated Symptoms: denies symptoms Previous symptoms: no prior history, recently seen, recently treated Allergies/Adverse Reactions: morphine Allergy (Verified 01/22/22 23:43) Home Medications: Levothyroxine Sodium [Tirosint-Sarika] 250 mcg PO DAILY 02/12/20 [History] Lamotrigine [Lamotrigine ER] 200 mg PO DAILY 01/22/22 [History] clonazePAM [Clonazepam] 0.5 mg PO DAILY 01/22/22 [History] Hx Tetanus, Diphtheria Vaccination/Date Given: Yes Hx Influenza Vaccination/Date Given: No Hx Pneumococcal Vaccination/Date Given: No Travel Risk - International Travel Have you traveled outside of the country in past 3 weeks: No - Coronavirus Screening Are you exhibiting any of the following symptoms?: No Close contact with a COVID-19 positive Pt in past 14-21 Days: No - Vaccine Status Have you recieved a Covid-19 vaccination: No - Review of Systems Constitutional: No Symptoms Eyes: No Symptoms Ears, Nose, & Throat: No Symptoms Respiratory: No Symptoms Cardiac: No Symptoms Abdominal/Gastrointestinal: Abdominal Pain (Mild left upper quadrant fullness) Genitourinary Symptoms: No Symptoms Musculoskeletal: No Symptoms Skin: No Symptoms Neurological: No Symptoms Psychological: No Symptoms Endocrine: No Symptoms Hematologic/Lymphatic: No Symptoms Immunological/Allergic: No Symptoms All Other Systems: Reviewed and Negative - Past Medical History Pertinent Past Medical History: Yes Neurological History: No Pertinent History ENT History: No Pertinent History Cardiac History: No Pertinent History Respiratory History: No Pertinent History Endocrine Medical History: Hypothyroidism, Thyroid Cancer Musculoskeletal History: No Pertinent History GI Medical History: Polyps History: No Pertinent History Psycho-Social History: No Pertinent History Female Reproductive Disorders: Other Other Medical History: OVARIAN CYSTS - Past Surgical History Past Surgical History: Yes Neuro Surgical History: No Pertinent History Cardiac: No Pertinent History Respiratory: No Pertinent History Gastrointestinal: Cholecystectomy, Other Genitourinary: No Pertinent History Musculoskeletal: No Pertinent History Female Surgical History: Tubal Ligation Other Surgical History: thyroidectomy 2004. thymus removal. intestinal polyps removed. ovarian cysts removed - Social History Smoking Status: Never smoker Exposure to second hand smoke: No Drug Use: none Patient Lives Alone: No - Female History Hx Now: No - Nursing Vital Signs Nursing Vital Signs: Initial Vital Signs Temperature 97.9 F 01/22/22 23:47 Pulse Rate 78 01/22/22 23:47 Respiratory Rate 20 01/22/22 23:47 Blood Pressure 180/103 01/22/22 23:47 O2 Sat by Pulse Oximetry 98 01/22/22 23:47 Pain Scale Pain Intensity 4 - Physical Exam General Appearance: no apparent distress, alert, anxiety Eye Exam: PERRL/EOMI, eyes nml inspection Ears, Nose, Throat Exam: normal ENT inspection, moist mucous membranes Neck Exam: normal inspection, non-tender, supple, full range of motion Respiratory Exam: normal breath sounds, lungs clear, airway intact, No chest tenderness, No respiratory distress Cardiovascular Exam: regular rate/rhythm, normal heart sounds, normal peripheral pulses Gastrointestinal/Abdomen Exam: soft, normal bowel sounds, tenderness (Mild left upper quadrant tenderness to palpation), No guarding, No rebound Rectal Exam: not done Back Exam: normal inspection, normal range of motion, No CVA tenderness, No vertebral tenderness Extremity Exam: normal inspection, normal range of motion, pelvis stable Neurologic Exam: alert, oriented x 3, cooperative, 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 tested, normal mood/affect, nml cerebellar function, nml station & gait, sensation nml Skin Exam: normal color, warm, dry Lymphatic Exam: No adenopathy SpO2 Interpretation: normal SpO2: 97 O2 Delivery: Room Air - Course Nursing assessment & vital signs reviewed: Yes EKG Interpreted by Me: RATE (80), Sinus Rhythm, NORMAL AXIS, NORMAL INTERVALS, NORMAL QRS, Non-specific ST Changes, Other (No acute ischemic changes on today's twelve-lead EKG) Ordered Tests: Active Orders 24 hr Category Date Time Status IV Insertion STAT Care 01/23/22 00:07 Active D-DIMER QUANTITATIVE Stat Lab 01/23/22 00:59 Completed NT PRO BNP Stat Lab 01/23/22 00:59 Completed TROPONIN Q4H Lab 01/23/22 00:59 Completed TROPONIN Q4H Lab 01/23/22 05:00 Ordered TROPONIN Q4H Lab 01/23/22 09:00 Ordered Lab/Rad Data: Laboratory Results 01/23/22 01/23/22 01/23/22 Range/Units 00:59 00:59 00:59 D-Dimer 0.41 (0.0-0.50) mg/L Troponin I < 0.012 (0.000-0.034) ng/mL NT-Pro-B Natriuret Pep 24.7 (0-450) pg/mL - Progress Progress Note: 01/23/22 01:01 Medical decision making: I reviewed the chart from [facility] emergency department in [facility]. I did not see a troponin, BNP or D- dimer present and therefore will order these tests. I had a long discussion with the patient and reviewed the findings that I saw on the reports from [facility] emergency department. - Departure Departure Disposition: Home Clinical Impression: Anxiety about health, Pericardial effusion Condition: Stable Critical Care Time: No Referrals: MOSELEY,PRADEEP MIGUEL [Primary Care Provider] - Follow up/PCP as directed Additional Instructions: Follow-up with your primary care provider later this morning to make arrangements for further evaluation management.
[2022-01-23 02:03] VITALS: BP 146/107; PULSE 58; O2SAT 96
== END 2022-01-23 02:07 | disposition home or self-care (01) ==
LOC: ED 23:42
DX: F45.9 Somatoform disorder, unspecified (principal); I31.39 Other pericardial effusion (noninflammatory); R10.12 Left upper quadrant pain; Z79.899 Other long term (current) drug therapy; Z28.310 Unvaccinated for COVID-19
CPT/HCPCS: 36000; 36415; 83880; 84484; 85379; 99283

== ENCOUNTER 2022-10-25 09:47 | Emergency (ER) | payer MEDICARE ==
[2022-10-25 10:49] VITALS: TEMP 98.6
[2022-10-25 10:58] LABS: Absolute Neutrophil Ct (ANC) 4.62 x10^3/uL (1.4-6.9); BASOPHIL % 0.7 % (0.0-0.4); Basophil (Absolute #) 0.05 x10^3/uL (0-0.4); Eosinophil (Absolute #) 0.07 x10^3/uL (0-0.5); Hematocrit 41.5 % (35-47); Hemoglobin 12.8 g/dL (12.0-16.0); IMMATURE GRAN # 0.04 x10^3u/L (0.00-0.03); IMMATURE GRAN % 0.6 % (0.00-0.4); Lymphocyte (Absolute #) 1.42 x10^3/uL (1.0-4.6); Lymphocytes % 21.3 % (24.0-44.0); Mean Cell Volume 76.9 fL (78-100); Mean Corpuscular Hemoglobin 23.7 pg (26-32); Mean Corpuscular Hgb Concent. 30.8 g/dL (32-36); Mean Platelet Volume 9.5 fL (7.5-11.0); Monocyte (Absolute #) 0.47 x10^3/uL (0.0-1.3); Neutrophil % 69.4 % (36.0-66.0); Platelet Count 292 x10^3/uL (150-450); Red Cell Distribution Width 21.6 % (11.5-14.0); White Blood Count 6.7 x10^3/uL (4.0-10.5)
--- NOTE | 2022-10-25 10:59 | ERPHSYRPT ---
- History of Present Illness Historian: patient Exam Limitations: no limitations Patient Subjective Stated Complaint: C/O right lower abdominal pain that woke her up at around 0600 today. States she is nauseated; no vomiting thus far today. Denies any changes in bowel habits. Triage Nursing Assessment: Patient brought back to ER in a W/C. She is alert and oriented. Face is flushed, skin is moist; back of shirt wet from sweat. She is alert and oriented. No SOB. No Cough. Right lower abdomen is tender to light touch. Hypoactive bowel sounds. Physician History: 42 yo Wf w RLQ pain starting at 6AM today. Pain is 7/10, sharp-burning, and worse w movement. It is accompanied by nausea but denies vomiting/diarrhea/fever/melena/hematochezia/dysuria/hematuria. She has had a cholecytectomy/BTL/thyroidectomy. Timing/Duration: other (6AM) Activities at Onset: rest Quality: burning, sharpness Abdominal Pain Onset Location: RLQ Pain Radiation: no radiation Severity of Pain-Max: severe Severity of Pain-Current: moderate Modifying Factors: Improves With: nothing, movement Associated Symptoms: denies symptoms Previous symptoms: no prior history Allergies/Adverse Reactions: morphine Allergy (Verified 10/25/22 10:33) Home Medications: Levothyroxine Sodium [Tirosint-Sarika] 250 mcg PO DAILY 02/12/20 [History] Lamotrigine [Lamotrigine ER] 200 mg PO DAILY 01/22/22 [History] clonazePAM [Clonazepam] 0.5 mg PO DAILY 01/22/22 [History] Hx Tetanus, Diphtheria Vaccination/Date Given: Yes Hx Influenza Vaccination/Date Given: No Hx Pneumococcal Vaccination/Date Given: No Immunizations Up to Date: Yes Travel Risk - International Travel Have you traveled outside of the country in past 3 weeks: No - Coronavirus Screening Are you exhibiting any of the following symptoms?: No Close contact with a COVID-19 positive Pt in past 14-21 Days: No - Vaccine Status Have you recieved a Covid-19 vaccination: No - Review of Systems Constitutional: No Symptoms Eyes: No Symptoms Ears, Nose, & Throat: No Symptoms Respiratory: No Symptoms Cardiac: No Symptoms Genitourinary Symptoms: No Symptoms Musculoskeletal: No Symptoms Skin: No Symptoms Neurological: No Symptoms Psychological: No Symptoms Endocrine: No Symptoms Hematologic/Lymphatic: No Symptoms Immunological/Allergic: No Symptoms - Past Medical History Pertinent Past Medical History: Yes Neurological History: No Pertinent History ENT History: No Pertinent History Cardiac History: No Pertinent History Respiratory History: No Pertinent History Endocrine Medical History: Hypothyroidism, Thyroid Cancer Musculoskeletal History: No Pertinent History GI Medical History: Gallbladder Disease, Polyps History: No Pertinent History Psycho-Social History: Anxiety, Depression Female Reproductive Disorders: Other Other Medical History: OVARIAN CYSTS - Past Surgical History Past Surgical History: Yes Neuro Surgical History: No Pertinent History Cardiac: No Pertinent History Respiratory: No Pertinent History Gastrointestinal: Cholecystectomy, Other Genitourinary: No Pertinent History Musculoskeletal: No Pertinent History Female Surgical History: Tubal Ligation Other Surgical History: thyroidectomy 2004. thymus removal. intestinal polyps removed. ovarian cysts removed - Social History Smoking Status: Never smoker Exposure to second hand smoke: No Drug Use: none Patient Lives Alone: No - Female History Hx Last Menstrual Period: 2 WEEKS AGO Hx Now: No (TUBAL) - Nursing Vital Signs Nursing Vital Signs: Initial Vital Signs Temperature 98.6 F 10/25/22 09:48 Pulse Rate 78 10/25/22 09:48 Respiratory Rate 13 10/25/22 09:48 Blood Pressure 170/105 10/25/22 09:48 O2 Sat by Pulse Oximetry 99 10/25/22 09:48 Pain Scale Pain Intensity 9 Hypertensive - Physical Exam General Appearance: mild distress Eye Exam: PERRL/EOMI, eyes nml inspection Ears, Nose, Throat Exam: normal ENT inspection, TMs normal, pharynx normal, m oist mucous membranes Neck Exam: normal inspection, non-tender, supple, full range of motion, No meningismus, No mass, No Brudzinski, No Kernig's Respiratory Exam: normal breath sounds, lungs clear, airway intact Cardiovascular Exam: regular rate/rhythm, normal heart sounds, normal peripheral pulses, capillary refill <2 sec, No murmur Gastrointestinal/Abdomen Exam: soft, normal bowel sounds, tenderness (Marked RLQ TTP w rebound) Back Exam: normal inspection, normal range of motion Extremity Exam: normal inspection, normal range of motion Neurologic Exam: alert, oriented x 3, cooperative, 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 II-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 tested, normal mood/affect, nml cerebellar function, nml station & gait, sensation nml Skin Exam: normal color, warm, dry Lymphatic Exam: No adenopathy SpO2 Interpretation: normal SpO2: 98 O2 Delivery: Room Air - Course Nursing assessment & vital signs reviewed: Yes - CT Exams Abdomen/Pelvis CT Interpretation: Discussed w/radiologist (Normal appendix) - Radiology Ultrasound Exam Pelvis Ultrasound: discussed w/radiologist (Small R hemorrhagic ovarian cyst) Ordered Tests: Active Orders 24 hr Category Date Time Status IV Insertion STAT Care 10/25/22 10:54 Completed ABDOMEN AND PELVIS W/0 CONTRAS [CT] Stat Exams 10/25/22 10:59 Completed PELVIC [US] Stat Exams 10/25/22 12:06 Completed AMYLASE Stat Lab 10/25/22 10:53 Completed CBC W DIFF Stat Lab 10/25/22 10:53 Completed CMP Stat Lab 10/25/22 10:53 Completed HCG QUALITATIVE, SERUM Stat Lab 10/25/22 10:53 Completed LIPASE Stat Lab 10/25/22 10:53 Completed Lactic Acid Stat Lab 10/25/22 10:50 Completed UA W/RFX UR CULTURE Stat Lab 10/25/22 12:37 Completed Medication Summary Discontinued Medications Generic Name Dose Route Start Last Admin Trade Name Raminq PRN Reason Stop Dose Admin Ketorolac Tromethamine 30 mg 10/25/22 12:05 10/25/22 12:12 Ketorolac Tromethamine 30 Mg/Ml Inj IV 10/25/22 12:06 30 mg STAT ONE Administration Ketorolac Tromethamine Confirm 10/25/22 12:11 Ketorolac Tromethamine 30 Mg/Ml Inj Administered 10/25/22 12:12 Dose 30 mg .ROUTE .STK-MED ONE Lab/Rad Data: Laboratory Result Diagrams 10/25/22 10:53 10/25/22 10:53 Laboratory Results 10/25/22 10/25/22 10/25/22 Range/Units 12:37 10:53 10:53 WBC (4.0-10.5) x10^3/uL RBC (4.1-5.4) x10^6/uL Hgb (12.0-16.0) g/dL Hct (35-47) % MCV (78-100) fL MCH (26-32) pg MCHC (32-36) g/dL RDW (11.5-14.0) % Plt Count (150-450) x10^3/uL MPV (7.5-11.0) fL Gran % (36.0-66.0) % Immature Gran % (Auto) (0.00-0.4) % Nucleat RBC Rel Count (0.00-0.1) % Eos # (Auto) (0-0.5) x10^3/uL Immature Gran # (Auto) (0.00-0.03) x10^3u/L Absolute Lymphs (auto) (1.0-4.6) x10^3/uL Absolute Monos (auto) (0.0-1.3) x10^3/uL Absolute Nucleated RBC (0.00-0.01) x10^3u/L Lymphocytes % (24.0-44.0) % Monocytes % (0.0-12.0) % Eosinophils % (0.00-5.0) % Basophils % (0.0-0.4) % Absolute Granulocytes (1.4-6.9) x10^3/uL Basophils # (0-0.4) x10^3/uL Sodium 138 (137-145) mmol/L Potassium 4.2 (3.5-5.1) mmol/L Chloride 108 H (98-107) mmol/L Carbon Dioxide 17 L (22-30) mmol/L Anion Gap 18.0 H (5-15) MEQ/L BUN 10 (7-17) mg/dL Creatinine 0.71 (0.52-1.04) mg/dL Estimated GFR > 60.0 ML/MIN Glucose 93 (74-106) mg/dL Lactic Acid (0.4-2.0) Calcium 9.2 (8.4-10.2) mg/dL Total Bilirubin 0.80 (0.2-1.3) mg/dL AST 20 (14-36) U/L ALT 17 (0-35) U/L Alkaline Phosphatase 60 (38-126) U/L Serum Total Protein 7.6 (6.3-8.2) g/dL Albumin 4.7 (3.5-5.0) g/dL Amylase 58 (30-110) U/L Lipase 52 (23-300) U/L Serum HCG, Qual NEGATIVE (NEGATIVE) Urine Color Yellow (Yellow) Urine Appearance Clear (Clear) Urine pH 5.5 (4.6-8.0) Ur Specific [place] 1.015 (1.005-1.030) Urine Protein Negative (Negative) Urine Glucose (UA) Negative (Negative) mg/dL Urine Ketones 15 A (Negative) Urine Blood Negative (Negative) Urine Nitrite Negative (Negative) Urine Bilirubin Negative (Negative) Urine Urobilinogen 0.2 (0.2) mg/dL Ur Leukocyte Esterase Negative (Negative) U Hyaline Cast (Auto) NONE SEEN (0-2) /LPF Urine Microscopic RBC 3-5 (0-5) /HPF Urine Microscopic WBC 0-2 (0-5) /HPF Ur Epithelial Cells None Seen (None Seen) /HPF Urine Bacteria None Seen (None Seen) /HPF Urine Culture Reflexed NO (NO) 10/25/22 10/25/22 Range/Units 10:53 10:50 WBC 6.7 (4.0-10.5) x10^3/uL RBC 5.40 (4.1-5.4) x10^6/uL Hgb 12.8 (12.0-16.0) g/dL Hct 41.5 (35-47) % MCV 76.9 L (78-100) fL MCH 23.7 L (26-32) pg MCHC 30.8 L (32-36) g/dL RDW 21.6 H (11.5-14.0) % Plt Count 292 (150-450) x10^3/uL MPV 9.5 (7.5-11.0) fL Gran % 69.4 H (36.0-66.0) % Immature Gran % (Auto) 0.6 H (0.00-0.4) % Nucleat RBC Rel Count 0.0 (0.00-0.1) % Eos # (Auto) 0.07 (0-0.5) x10^3/uL Immature Gran # (Auto) 0.04 H (0.00-0.03) x10^3u/L Absolute Lymphs (auto) 1.42 (1.0-4.6) x10^3/uL Absolute Monos (auto) 0.47 (0.0-1.3) x10^3/uL Absolute Nucleated RBC 0.00 (0.00-0.01) x10^3u/L Lymphocytes % 21.3 L (24.0-44.0) % Monocytes % 7.0 (0.0-12.0) % Eosinophils % 1.0 (0.00-5.0) % Basophils % 0.7 (0.0-0.4) % Absolute Granulocytes 4.62 (1.4-6.9) x10^3/uL Basophils # 0.05 (0-0.4) x10^3/uL Sodium (137-145) mmol/L Potassium (3.5-5.1) mmol/L Chloride (98-107) mmol/L Carbon Dioxide (22-30) mmol/L Anion Gap (5-15) MEQ/L BUN (7-17) mg/dL Creatinine (0.52-1.04) mg/dL Estimated GFR ML/MIN Glucose (74-106) mg/dL Lactic Acid 1.0 (0.4-2.0) Calcium (8.4-10.2) mg/dL Total Bilirubin (0.2-1.3) mg/dL AST (14-36) U/L ALT (0-35) U/L Alkaline Phosphatase (38-126) U/L Serum Total Protein (6.3-8.2) g/dL Albumin (3.5-5.0) g/dL Amylase (30-110) U/L Lipase (23-300) U/L Serum HCG, Qual (NEGATIVE) Urine Color (Yellow) Urine Appearance (Clear) Urine pH (4.6-8.0) Ur Specific [place] (1.005-1.030) Urine Protein (Negative) Urine Glucose (UA) (Negative) mg/dL Urine Ketones (Negative) Urine Blood (Negative) Urine Nitrite (Negative) Urine Bilirubin (Negative) Urine Urobilinogen (0.2) mg/dL Ur Leukocyte Esterase (Negative) U Hyaline Cast (Auto) (0-2) /LPF Urine Microscopic RBC (0-5) /HPF Urine Microscopic WBC (0-5) /HPF Ur Epithelial Cells (None Seen) /HPF Urine Bacteria (None Seen) /HPF Urine Culture Reflexed (NO) - Progress Progress: improved Progress Note: 10/25/22 15:31 Nursing note and vital signs reviewed No food or housing insecurities noted 10/25/22 15:32 Pain improved w 30mg IV Toradol All lab results reviewed and shared w pt CT result reviewed and shared w pt US result reviewed and shared w pt Pain most likely due to small R ovarian cyst Counseled pt/family regarding: lab results, diagnosis, need for follow-up, rad results Medical Desision Making - Diagnostic Testing Radiological Interpretation: Reviewed by me - Risk of complications The pt has a mod risk of morbidity or mortality based on: Need for prescription drug management - Departure Departure Disposition: Home Clinical Impression: Right ovarian cyst Condition: Stable Critical Care Time: No Referrals: RE CARLOS [Primary Care Provider] - Follow up/PCP as directed Instructions: Severe Abdominal Pain, Adult (DC), Ovarian Cyst (DC) Additional Instructions: Return to ER for increasing pain or temperature greater than 100.5 Follow up with your family MD or Ob-management trainee program stores Pain meds as needed(Stool softener w pain meds) Prescriptions: Hydrocodone/Acetaminophen [Hydrocodone-Acetamin 5-325 mg] 1 tab PO Q6HPRN PRN #5 tablet MDD 4 PRN Reason: Pain
[2022-10-25 11:12] LABS: ALBUMIN 4.7 g/dL (3.5-5.0); ALKALINE PHOSPHATASE 60 U/L (38-126); AMYLASE 58 U/L (30-110); BLOOD UREA NITROGEN 10 mg/dL (7-17); CHLORIDE 108 mmol/L (98-107); Calcium 9.2 mg/dL (8.4-10.2); Carbon Dioxide 17 mmol/L (22-30); Creatinine 1 0.71 mg/dL (0.52-1.04); EST GLOMERULAR FILTRATION RATE > 60.0 ML/MIN; Glucose 93 mg/dL (74-106); LIPASE 52 U/L (23-300); Potassium 4.2 mmol/L (3.5-5.1); SGOT/AST 20 U/L (14-36); SGPT/ALT 17 U/L (0-35); SODIUM 138 mmol/L (137-145); Total Protein 7.6 g/dL (6.3-8.2)
[2022-10-25 11:18] LABS: HCG SERUM TEST NEGATIVE (NEGATIVE)
--- NOTE | 2022-10-25 11:35 | XRAY ---
Indication: Right lower quadrant pain. Multiple contiguous axial images obtained through the abdomen and pelvis without contrast. Comparison: April 24, 2020 Lung bases clear again with incidental small left base calcified granuloma. Heart not enlarged. Noncontrasted stomach and bowel loops are nonobstructed again with normal appendix. Again cholecystectomy. No free fluid/air. Remaining liver, pancreas, spleen, adrenal glands, kidneys, ureters, bladder, uterus, and aorta are unremarkable for noncontrast exam. Osseous structures intact. Impression: Continued negative CT abdomen/pelvis without contrast exam. Again incidental left lung base calcified granuloma.
[2022-10-25] MEDS ORDERED: TORAdol 30 mg Injection IV ONE (12:05)
[2022-10-25] MEDS ORDERED: TORAdol 30 mg Injection ONE (12:11)
[2022-10-25 13:03] LABS: Appearance Clear (Clear); Bacteria None Seen /HPF (None Seen); Bilirubin Negative (Negative); Blood Negative (Negative); Epithelial Cells None Seen /HPF (None Seen); Glucose, Urine Negative (Negative); Hyaline Casts NONE SEEN /LPF (0-2); Ketones 15 (Negative); Leukocyte Esterase Negative (Negative); Nitrite Negative (Negative); Ph 5.5 (4.6-8.0); Protein,Urine Dip Negative (Negative); Specific Gravity 1.015 (1.005-1.030); Urobilinogen 0.2 mg/dL (0.2); WBC 0-2 /HPF (0-5)
[2022-10-25 13:10] LABS: ADD URINE CULTURE? NO (NO)
--- NOTE | 2022-10-25 14:16 | XRAY ---
Indication: Right lower quadrant pain. Torsion. Status post endometrial biopsy. Two-dimensional transvaginal pelvic sonogram performed. Comparison: None Uterus anteverted measuring 10.0 x 5.1 x 5.7 cm. No focal solid/cystic uterine mass. Endometrial stripe is thickened measuring 13.8 mm. No endometrial cavity mass or fluid collection. Right ovary measures 4.0 x 2.6 x 3.9 cm and left measures 2.9 x 1.7 x 2.3 cm. Normal follicular cysts and perfusion bilaterally. Right ovary demonstrates a 2.3 x 1.5 cm cyst with low-grade internal echoes probably viscus/hemorrhagic. Tiny cul-de-sac and right adnexa free fluid presumed physiologic from rupture/leaking cyst. Impression: 1. Thickened endometrial stripe. Correlate with patient's menstrual cycle. 2. Small echogenic right ovary cyst probably viscus/hemorrhagic. Consider follow-up following at least 2 menstrual cycles. 3. Tiny right adnexa and cul-de-sac free fluid presumed physiologic.
[2022-10-25 14:22] VITALS: BP 131/93; PULSE 77; RESP 18
[2022-10-25 14:24] VITALS: O2SAT 98
== END 2022-10-25 14:29 | disposition home or self-care (01) ==
LOC: ED 09:47
DX: N83.201 Unspecified ovarian cyst, right side (principal); R10.31 Right lower quadrant pain; R11.0 Nausea; Z79.891 Long term (current) use of opiate analgesic; Z79.899 Other long term (current) drug therapy; Z28.310 Unvaccinated for COVID-19
CPT/HCPCS: 36000; 36415; 74176; 76856; 80053; 81001; 82150; 83605; 83690; 84703; 85025; 96374; 99284; J1885

== ENCOUNTER 2023-02-18 15:05 | Emergency (ER) | payer MEDICARE ==
--- NOTE | 2023-02-18 15:38 | ERPHSYRPT ---
- History of Present Illness Time Seen by Provider: 02/18/23 15:39 Source: patient Exam Limitations: no limitations Physician History: 42-year-old female presents to our ED for wound check. Patient's left lower extremity had a lesion excised by dermatology. The lesion was excised approximately 8 days ago. Movie Actor instructed our patient to remove the sutures. Patient remove the sutures and observe drainage redness and tenderness. Patient informed her cashier credit who called in doxycycline. Patient is here for wound check. She has yet to worm picker her doxycycline however confirmed that the doxycycline is available at her pharmacy. No active pain. Patient wondered if the wound needed to be resutured. We advised patient that the wound is not to be resutured. No indication for further workup. Patient will be discharged home. Portions of this note were created with voice recognition technology. There may be grammatical, spelling, punctuation or sound alike errors Timing/Duration: today Severity: moderate Modifying Factors: Improves With: nothing Associated Symptoms: denies symptoms Allergies/Adverse Reactions: morphine Allergy (Verified 02/18/23 15:23) Home Medications: Levothyroxine Sodium [Tirosint-Sarika] 250 mcg PO DAILY 02/12/20 [History] clonazePAM [Clonazepam] 0.5 mg PO DAILY PRN 01/22/22 [History] Ziprasidone HCl [Geodon] 40 mg PO DAILY 02/18/23 [History] Hx Tetanus, Diphtheria Vaccination/Date Given: Yes Hx Influenza Vaccination/Date Given: No Hx Pneumococcal Vaccination/Date Given: No Travel Risk - Vaccine Status Have you recieved a Covid-19 vaccination: No - Review of Systems Constitutional: No Symptoms, No Fever, No Chills Eyes: No Symptoms Ears, Nose, & Throat: No Symptoms Respiratory: No Symptoms, No Cough, No Dyspnea Cardiac: No Symptoms, No Chest Pain, No Edema, No Syncope Abdominal/Gastrointestinal: No Symptoms, No Abdominal Pain, No Nausea, No Vomiting, No Diarrhea Genitourinary Symptoms: No Symptoms, No Dysuria Musculoskeletal: No Symptoms, No Back Pain, No Neck Pain Skin: No Symptoms, No Rash Neurological: No Symptoms, No Dizziness, No Focal Weakness, No Sensory Changes Psychological: No Symptoms Endocrine: No Symptoms Hematologic/Lymphatic: No Symptoms Immunological/Allergic: No Symptoms All Other Systems: Reviewed and Negative - Past Medical History Pertinent Past Medical History: Yes Neurological History: No Pertinent History ENT History: No Pertinent History Cardiac History: No Pertinent History Respiratory History: No Pertinent History Endocrine Medical History: Hypothyroidism, Thyroid Cancer Musculoskeletal History: No Pertinent History GI Medical History: Gallbladder Disease, Polyps History: No Pertinent History Psycho-Social History: Anxiety, Depression Female Reproductive Disorders: Other Other Medical History: OVARIAN CYSTS - Past Surgical History Past Surgical History: Yes Neuro Surgical History: No Pertinent History Cardiac: No Pertinent History Respiratory: No Pertinent History Gastrointestinal: Cholecystectomy, Other Genitourinary: No Pertinent History Musculoskeletal: No Pertinent History Female Surgical History: Tubal Ligation Other Surgical History: thyroidectomy 2004. thymus removal. intestinal polyps removed. ovarian cysts removed - Social History Smoking Status: Never smoker Exposure to second hand smoke: No Drug Use: none Patient Lives Alone: No - Physical Exam General Appearance: no apparent distress, alert Eye Exam: PERRL/EOMI, eyes nml inspection Ears, Nose, Throat Exam: normal ENT inspection, moist mucous membranes Neck Exam: normal inspection, non-tender, supple, full range of motion Respiratory Exam: normal breath sounds, lungs clear, airway intact, No respiratory distress Cardiovascular Exam: regular rate/rhythm, normal heart sounds, normal peripheral pulses Gastrointestinal/Abdomen Exam: soft, normal bowel sounds, No tenderness, No mass Back Exam: normal inspection, normal range of motion, No CVA tenderness, No vertebral tenderness Extremity Exam: normal inspection, normal range of motion, pelvis stable Neurologic Exam: alert, oriented x 3, cooperative, normal mood/affect, sensation nml, No motor deficits Skin Exam: normal color, warm, dry, No rash Lymphatic Exam: No adenopathy SpO2 Interpretation: normal SpO2: 97 O2 Delivery: Room Air - Course Nursing assessment & vital signs reviewed: Yes - Progress Progress: improved Progress Note: 42-year-old female presents to our ED for evaluation of left lower extremity wound. There is a rim of cellulitis around the wound. However the base appears to be clean. Granular tissue forming. No lymphangitis. The involved extr emity is neurovascular tact distally. Compartments are soft cap refill less than 2 seconds. Patient has a prescription for doxycycline waiting for her at her pharmacy. No indication for further workup. Will discharge patient home. Patient to take the doxycycline as prescribed. Patient to keep the wound clean and follow-up with dermatology as scheduled. Patient declined active pain. No indication for pain medication at this time. Will discharge patient home. Patient voices no other complaints or concerns at this time. Patient wondered if the wound should be resutured. The answer is no. The wound will close by secondary intention from here forward. Portions of this note were created with voice recognition technology. There may be grammatical, spelling, punctuation or sound alike errors Complexity of problems addressed is low acute uncomplicated No critical care time Complex of data reviewed and analyzed is none. No specialized testing ordered. Diagnosis made based on history and physical exam. Risk of complication and or risk morbidity/mortality of patient management is low. Vital stable. Time spent to discharge patient is approximately 10 minutes. Plan of care established for shared decision making. No social determinants of health present impede follow-up. Portions of this note were created with voice recognition technology. There may be grammatical, spelling, punctuation or sound alike errors 02/18/23 15:41 Counseled pt/family regarding: diagnosis, need for follow-up - Departure Departure Disposition: Home Clinical Impression: Cellulitis Condition: Stable Critical Care Time: No Referrals: RE CARLOS [Primary Care Provider] - Follow up/PCP as directed Additional Instructions: Discharge/Care Plan ANA RUST was seen on 02/18/23 in the Emergency Room. The patient was counseled regarding Diagnosis,Lab results, Imaging studies, need for follow up and when to return to the Emergency Room. Prescriptions given: Discharge Note I have spoken with the patient and/or caregivers. I have explained the patient's condition, diagnosis and treatment plan based on the information available to me at this time. I have answered the patient's and/or caregiver's questions and addressed any concerns. The patient and/or caregivers have as good understanding of the patient's diagnosis, condition and treatment plan as can be expected at this point. The vital signs have been stable. The patient's condition is stable and appropriate for discharge from the emergency department. The patient will pursue further outpatient evaluation with the primary care physician or other designated or consulting physician as outlined in the d ischarge instructions. The patient and/or caregivers are agreeable to this plan of care and follow-up instructions have been explained in detail. The patient and/or caregivers have received these instruction. The patient/and or caregivers are aware that any significant change in condition or worsening of symptoms should prompt an immediate return to this or the closest emergency department or call 911.
[2023-02-18 15:48] VITALS: BP 180/90; PULSE 71; RESP 20; TEMP 97.2; O2SAT 98
== END 2023-02-18 15:48 | disposition home or self-care (01) ==
LOC: ED 15:05
DX: L76.82 Other postprocedural complications of skin and subcutaneous tissue (principal); L03.116 Cellulitis of left lower limb; Z48.01 Encounter for change or removal of surgical wound dressing; Z79.899 Other long term (current) drug therapy; Z28.310 Unvaccinated for COVID-19
CPT/HCPCS: 99281

== ENCOUNTER 2023-10-31 00:38 | Emergency (ER) | payer MEDICARE ==
[2023-10-31 00:57] VITALS: TEMP 97.2
--- NOTE | 2023-10-31 01:07 | ERPHSYRPT ---
- History of Present Illness Time Seen by Provider: 10/31/23 00:51 Source: patient Exam Limitations: no limitations Patient Subjective Stated Complaint: c/o hypertension Triage Nursing Assessment: pt ambulate into the er; pt is axo x4; pt is anxious; c/o htn; pt states 3/10 pain to head; pupils 4mm and PERRL; hypertensive; clear apical heart tone; clear lung sounds in all lobes; strong celia radial pulses; strong celia pedal pulses; skin PDW; no respiratory distress present Physician History: 43-year-old female with history of hypothyroidism, anxiety presented in the ER with complaints of elevated blood pressure. Patient reports for the last couple of weeks her blood pressure is staying more than 160 systolic. Today it was 205 systolic prior to arrival. Patient reports having heaviness in the head with no visual disturbance. Denies any chest pain palpitations or shortness of breath. Patient is very anxious. She recently saw her java designer and was increased the dose of levothyroxine and recheck TSH is 0.09 now the course of couple of weeks. Patient thinks that is causing her symptoms and elevation in blood pressure. Denies any history of hypertension and not taking any medications. Allergies/Adverse Reactions: morphine Allergy (Verified 10/31/23 00:47) Home Medications: Levothyroxine Sodium 125 mcg PO DAILY 10/31/23 [History] Hx Tetanus, Diphtheria Vaccination/Date Given: Yes Hx Influenza Vaccination/Date Given: No Hx Pneumococcal Vaccination/Date Given: No Travel Risk - International Travel Have you traveled outside of the country in past 3 weeks: No - Emerging Infectious Disease Are you exhibiting symptoms associated with any current EIDs: No - Review of Systems Constitutional: No Symptoms Eyes: No Symptoms Ears, Nose, & Throat: No Symptoms Respiratory: No Symptoms Cardiac: No Symptoms Abdominal/Gastrointestinal: No Symptoms Genitourinary Symptoms: No Symptoms Musculoskeletal: No Symptoms Skin: No Symptoms Neurological: Headache Psychological: Anxiety Endocrine: No Symptoms Hematologic/Lymphatic: No Symptoms Immunological/Allergic: No Symptoms - Past Medical History Pertinent Past Medical History: Yes Neurological History: No Pertinent History ENT History: No Pertinent History Cardiac History: No Pertinent History Respiratory History: No Pertinent History Endocrine Medical History: Hypothyroidism, Thyroid Cancer Musculoskeletal History: No Pertinent History GI Medical History: Gallbladder Disease, Polyps History: No Pertinent History Psycho-Social History: Anxiety, Depression Female Reproductive Disorders: Other Other Medical History: OVARIAN CYSTS - Past Surgical History Past Surgical History: Yes Neuro Surgical History: No Pertinent History Cardiac: No Pertinent History Respiratory: No Pertinent History Gastrointestinal: Cholecystectomy, Other Genitourinary: No Pertinent History Musculoskeletal: No Pertinent History Female Surgical History: Tubal Ligation Other Surgical History: thyroidectomy 2005. thymus removal. intestinal polyps removed. ovarian cysts removed - Female History Hx Last Menstrual Period: tubal Hx Now: No - Social History Smoking Status: Never smoker Exposure to second hand smoke: No Drug Use: none Patient Lives Alone: No - Social Determinants of Health Will the patient participate in the screening: Yes Do you worry about a steady place to live?: No Do you have any problems with any of the following?: No known problems In the past 12 months,have you had to go without utilities?: No Transportation Issues: No Has anyone in your support network made you feel unsafe?: No Have you or anyone in your house had to go without enough: No - Nursing Vital Signs Nursing Vital Signs: Initial Vital Signs Pulse Rate 92 H 10/31/23 00:47 Respiratory Rate 17 10/31/23 00:47 Blood Pressure 204/105 10/31/23 00:47 O2 Sat by Pulse Oximetry 98 10/31/23 00:47 Pain Scale Pain Intensity 3 - Physical Exam General Appearance: no apparent distress, alert, anxiety Eye Exam: PERRL/EOMI Ears, Nose, Throat Exam: normal ENT inspection Neck Exam: normal inspection, non-tender, supple, full range of motion Respiratory Exam: normal breath sounds, lungs clear Cardiovascular Exam: regular rate/rhythm, normal heart sounds Gastrointestinal/Abdomen Exam: soft, normal bowel sounds, No tenderness Extremity Exam: normal inspection, normal range of motion Neurologic Exam: alert, oriented x 3, cooperative, technical producer II-XII nml as tested, nml cerebellar function, nml station & gait, sensation nml, No normal mood/affect, No motor deficits Skin Exam: normal color SpO2 Interpretation: normal SpO2: 100 O2 Delivery: Room Air - Course EKG Interpreted by Me: RATE ([id number]), Sinus Rhythm, NORMAL AXIS, NORMAL INTERVALS, Non-specific ST Changes Ordered Tests: Active Orders 24 hr Category Date Time Status Senior Ios Software Engineer STAT Care 10/31/23 01:04 Active EKG-ER Only STAT Care 10/31/23 01:03 Active IV Insertion STAT Care 10/31/23 01:03 Active CHEST 1 VIEW (PORTABLE) Stat Exams 10/31/23 01:19 Taken CBC W DIFF Stat Lab 10/31/23 01:10 Completed CMP Stat Lab 10/31/23 01:10 Completed NT PRO BNPII Stat Lab 10/31/23 01:10 Completed TROPONIN Q4H Lab 10/31/23 01:10 Completed TROPONIN Q4H Lab 10/31/23 05:15 Ordered TROPONIN Q4H Lab 10/31/23 09:15 Ordered Medication Summary Discontinued Medications Generic Name Dose Route Start Last Admin Trade Name Milena PRN Reason Stop Dose Admin Hydroxyzine HCl 50 mg 10/31/23 01:10 10/31/23 01:16 Hydroxyzine Hcl 25 Mg Tablet PO 10/31/23 01:11 50 mg STAT ONE Administration Hydroxyzine HCl Confirm 10/31/23 01:16 Hydroxyzine Hcl 25 Mg Tablet Administered 10/31/23 01:17 Dose 50 mg .ROUTE .STK-MED ONE Lorazepam 1 mg 10/31/23 01:04 10/31/23 02:05 Lorazepam 1 Mg Tablet PO 10/31/23 01:05 Not Given STAT ONE Lab/Rad Data: Laboratory Result Diagrams 10/31/23 01:10 10/31/23 01:10 Laboratory Results 10/31/23 10/31/23 10/31/23 Range/Units 01:10 01:10 01:10 WBC 10.2 H (3.98-10.04) x10^3/uL RBC 5.07 (3.93-5.22) x10^6/uL Hgb 15.5 (11.2-15.7) g/dL Hct 45.0 H (34.1-44.9) % MCV 88.8 (79.4-94.8) fL MCH 30.6 (25.6-32.2) pg MCHC 34.4 (32.2-35.5) g/dL RDW 11.9 (11.7-14.4) % Plt Count 273 (182-369) x10^3/uL MPV 9.9 (9.4-12.3) fL Gran % 67.6 (34.0-71.1) % Immature Gran % (Auto) 0.6 H (0.001-0.429) % Nucleat RBC Rel Count 0.0 (0.00-0.2) % Eos # (Auto) 0.11 (0.04-0.36) x10^3/uL Immature Gran # (Auto) 0.06 H (0.001-0.031) x10^3u/L Absolute Lymphs (auto) 2.26 (1.18-3.74) x10^3/uL Absolute Monos (auto) 0.78 (0.24-0.86) x10^3/uL Absolute Nucleated RBC 0.00 (0.00-0.012) x10^3u/L Lymphocytes % 22.2 (19.3-51.7) % Monocytes % 7.7 (4.7-12.5) % Eosinophils % 1.1 (0.7-5.8) % Basophils % 0.8 (0.1-1.2) % Absolute Granulocytes 6.87 H (1.56-6.13) x10^3/uL Basophils # 0.08 (0.01-0.08) x10^3/uL Sodium 139 (135-145) mmol/L Potassium 3.6 (3.5-5.1) mmol/L Chloride 103 (98-107) mmol/L Carbon Dioxide 22 (22-30) mmol/L Anion Gap 16.6 H (5-15) MEQ/L BUN 11 (7-17) mg/dL Creatinine 0.80 (0.52-1.04) mg/dL Estimated GFR 93.1 ML/MIN Glucose 105 (74-106) mg/dL Calcium 9.5 (8.4-10.2) mg/dL Total Bilirubin 1.40 H (0.2-1.3) mg/dL AST 23 (14-36) U/L ALT 22 (0-35) U/L Alkaline Phosphatase 51 (38-126) U/L Troponin I < 0.012 (0.000-0.033) ng/mL NT-Pro-B Natriuret Pep 21.1 (<300) pg/mL Serum Total Protein 7.8 (6.3-8.2) g/dL Albumin 4.8 (3.5-5.0) g/dL - Progress Progress: improved Progress Note: 10/31/23 02:05 43-year-old is evaluated in the ER for elevated blood pressure. Patient blood pressure was 204 systolic on presentation in the ER. Patient was very anxious. The EKG is sinus rhythm with no ST elevations. Negative troponins. Chest x- ray negative for any acute cardiopulmonary findings. Normal white count, fairly unremarkable chemistries. Patient is thoroughly counseled, given hydroxyzine, on reevaluation her blood pressure improved in 130s and 140s without any antihypertensive. I believe patient has anxiety which is contributing to elevation in her blood pressure. I would start her on losartan low-dose and recommended monitoring, keeping a log and outpatient follow-up. Patient does have appointment with her primary care in the morning. Discussed signs symptoms of worsening needing return to ER which she seems understanding. Stable for discharge. Counseled pt/family regarding: lab results, diagnosis, need for follow-up, rad results Medical Desision Making - Diagnostic Testing Diagnostic test were ordered, analyzed, and reviewed by me: Yes Radiological Interpretation: Interpreted by me, Reviewed by me - Risk of complications The pt has a mod risk of morbidity or mortality based on: Need for prescription drug management - Departure Departure Disposition: Home Clinical Impression: Hypertension, Anxiety Condition: Stable Critical Care Time: No Referrals: JUAN ZIMMERMAN JR [Primary Care Provider] - Follow up with PCP 1 day Instructions: Malignant Hypertension (DC), DASH diet Additional Instructions: Take low-salt diet, regular exercise . Monitor your blood pressure regularly, keep a log and follow-up with your primary care for reevaluation. Do not take blood pressure medication if it is less than 130. Return to ER for persistent high blood pressure, headache, visual disturbance, chest pain palpitations, shortness of breath, numbness tingling weakness or visual disturbance. Prescriptions: Hydroxyzine HCl 25 mg [Atarax 25 mg] 25 mg PO Q6H PRN #12 tablet PRN Reason: Itching Losartan Potassium 25 mg PO DAILY 30 Days #30 tablet
[2023-10-31 01:11] LABS: Absolute Neutrophil Ct (ANC) 6.87 x10^3/uL (1.56-6.13); BASOPHIL % 0.8 % (0.1-1.2); Basophil (Absolute #) 0.08 x10^3/uL (0.01-0.08); Eosinophil % 1.1 % (0.7-5.8); Eosinophil (Absolute #) 0.11 x10^3/uL (0.04-0.36); Hemoglobin 15.5 g/dL (11.2-15.7); IMMATURE GRAN # 0.06 x10^3u/L (0.001-0.031); IMMATURE GRAN % 0.6 % (0.001-0.429); Lymphocyte (Absolute #) 2.26 x10^3/uL (1.18-3.74); Lymphocytes % 22.2 % (19.3-51.7); Mean Cell Volume 88.8 fL (79.4-94.8); Mean Corpuscular Hemoglobin 30.6 pg (25.6-32.2); Mean Corpuscular Hgb Concent. 34.4 g/dL (32.2-35.5); Mean Platelet Volume 9.9 fL (9.4-12.3); Monocyte (Absolute #) 0.78 x10^3/uL (0.24-0.86); Monocytes % 7.7 % (4.7-12.5); Neutrophil % 67.6 % (34.0-71.1); Platelet Count 273 x10^3/uL (182-369); Red Blood Count 5.07 x10^6/uL (3.93-5.22); Red Cell Distribution Width 11.9 % (11.7-14.4); White Blood Count 10.2 x10^3/uL (3.98-10.04)
[2023-10-31] MEDS ORDERED: ATARAX 25 MG ONE (01:16)
[2023-10-31] MEDS: ATARAX 25 MG PO ONE (01:16)
[2023-10-31 01:34] VITALS: PULSE 78
[2023-10-31 01:34] LABS: ALBUMIN 4.8 g/dL (3.5-5.0); ANION GAP 16.6 MEQ/L (5-15); BILIRUBIN,TOTAL 1.4 mg/dL (0.2-1.3); Calcium 9.5 mg/dL (8.4-10.2); Creatinine 1 0.8 mg/dL (0.52-1.04); EST GLOMERULAR FILTRATION RATE 93.1 ML/MIN; NT PRO BNPII 21.1 pg/mL (<300); Potassium 3.6 mmol/L (3.5-5.1); Total Protein 7.8 g/dL (6.3-8.2)
[2023-10-31 02:01] VITALS: BP 144/97; RESP 17
[2023-10-31] MEDS: Ativan 1 MG PO ONE (02:05)
[2023-10-31 02:08] VITALS: O2SAT 100
--- NOTE | 2023-10-31 09:21 | XRAY ---
Indication: Hypertension. Comparison: December 20, 2019 Portable apical lordotic chest unchanged again demonstrating normal heart, lungs, and bony thorax with incidental left lung base calcified granuloma and right paratracheal surgical clips.
== END 2023-10-31 02:25 | disposition home or self-care (01) ==
LOC: ED 00:38
DX: I10 Essential (primary) hypertension (principal); F41.9 Anxiety disorder, unspecified; Z79.899 Other long term (current) drug therapy
CPT/HCPCS: 36000; 36415; 71045; 80053; 83880; 84484; 85025; 93005; 93041; 99284; A9270-GY

== ENCOUNTER 2024-03-14 15:23 | Emergency (ER) | payer MEDICARE ==
[2024-03-14 15:37] VITALS: TEMP 97.7
--- NOTE | 2024-03-14 15:53 | ERPHSYRPT ---
- History of Present Illness Time Seen by Provider: 03/14/24 15:38 Source: patient Exam Limitations: no limitations Patient Subjective Stated Complaint: migraine since last night, vomiting Triage Nursing Assessment: Presents to ED bed 9. ambulates to bed 9, placed on monitor. BP high, other vitals stable. Reports migraine since last night. Pain i n center of back of head, radiates to front. + n/v. Took neurtec last night with little relief. Sensitivity to light and sounds. States ringing in ears, some numbness/tingling sensation down bilateral arms. PERLLA noted. Answers all questions appropriately, skin PWD. Physician History: Pt states she started with a generalized migraine headache yesterday 11/10 in severity with nausea, vomiting and photophobia; denies chest pain & fever; admits to shortness of air and diaphoresis since yesterday. Allergies/Adverse Reactions: morphine Allergy (Verified 10/31/23 00:47) Home Medications: Levothyroxine Sodium 125 mcg PO DAILY 10/31/23 [History] Hx Tetanus, Diphtheria Vaccination/Date Given: Yes Hx Influenza Vaccination/Date Given: No Hx Pneumococcal Vaccination/Date Given: No Travel Risk - International Travel Have you traveled outside of the country in past 3 weeks: No - Emerging Infectious Disease Are you exhibiting symptoms associated with any current EIDs: No - Review of Systems Constitutional: No Fever Eyes: Photophobia Respiratory: Dyspnea Cardiac: No Chest Pain Abdominal/Gastrointestinal: Nausea, Vomiting Neurological: Headache - Past Medical History Pertinent Past Medical History: Yes Neurological History: No Pertinent History ENT History: No Pertinent History Cardiac History: No Pertinent History Respiratory History: No Pertinent History Endocrine Medical History: Hypothyroidism, Thyroid Cancer Musculoskeletal History: No Pertinent History GI Medical History: Gallbladder Disease, Polyps History: No Pertinent History Psycho-Social History: Anxiety, Depression Female Reproductive Disorders: Other Other Medical History: OVARIAN CYSTS - Past Surgical History Past Surgical History: Yes Neuro Surgical History: No Pertinent History Cardiac: No Pertinent History Respiratory: No Pertinent History Gastrointestinal: Cholecystectomy, Other Genitourinary: No Pertinent History Musculoskeletal: No Pertinent History Female Surgical History: Tubal Ligation Other Surgical History: thyroidectomy 2004. thymus removal. intestinal polyps removed. ovarian cysts removed - Female History Hx Last Menstrual Period: tubal Hx Now: No - Social History Smoking Status: Never smoker Exposure to second hand smoke: No Drug Use: none Patient Lives Alone: No - Social Determinants of Health Will the patient participate in the screening: Yes Do you worry about a steady place to live?: No In the past 12 months,have you had to go without utilities?: No Transportation Issues: No Has anyone in your support network made you feel unsafe?: No Have you or anyone in your house had to go without enough: No - Nursing Vital Signs Nursing Vital Signs: Initial Vital Signs Temperature 97.7 F 03/14/24 15:32 Pulse Rate 92 H 03/14/24 15:32 Respiratory Rate 16 03/14/24 15:32 Blood Pressure 180/120 03/14/24 15:32 O2 Sat by Pulse Oximetry 98 03/14/24 15:32 Pain Scale Pain Intensity 4 - Physical Exam General Appearance: alert Eye Exam: photophobia Ears, Nose, Throat Exam: pharynx normal, moist mucous membranes Neck Exam: normal inspection Respiratory Exam: lungs clear, airway intact Cardiovascular Exam: normal heart sounds Gastrointestinal/Abdominal Exam: normal bowel sounds 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 See rest of report.) Ordered Tests: Active Orders 24 hr Category Date Time Status Local Bulk Driver STAT Care 03/14/24 15:51 Active EKG-ER Only STAT Care 03/14/24 15:50 Active CHEST WITH CONTRAST [CT] Stat Exams 03/14/24 15:51 Completed HEAD WITHOUT CONTRAST [CT] Stat Exams 03/14/24 15:48 Completed CBC W DIFF Stat Lab 03/14/24 16:10 Completed CMP Stat Lab 03/14/24 16:10 Completed MAGNESIUM Stat Lab 03/14/24 16:10 Completed NT PRO BNPII Stat Lab 03/14/24 16:10 Completed TROPONIN Q4H Lab 03/14/24 16:10 Completed TROPONIN Q4H Lab 03/14/24 20:00 Ordered TROPONIN Q4H Lab 03/15/24 00:00 Ordered UA W/RFX UR CULTURE Stat Lab 03/14/24 15:50 Ordered Medication Summary Discontinued Medications Generic Name Dose Route Start Last Admin Trade Name Milena PRN Reason Stop Dose Admin Hydromorphone HCl 1 mg 03/14/24 15:46 03/14/24 16:15 Hydromorphone 1 Mg/1ml Inj IM 03/14/24 15:47 Not Given STAT ONE Hydromorphone HCl 1 mg 03/14/24 16:21 03/14/24 16:23 Hydromorphone 1 Mg/1ml Inj IV 03/14/24 16:22 1 mg STAT ONE Administration Hydromorphone HCl Confirm 03/14/24 16:22 Hydromorphone 1 Mg/1ml Inj Administered 03/14/24 16:23 Dose 1 mg .ROUTE .STK-MED ONE Hydromorphone HCl 1 mg 03/14/24 17:02 03/14/24 17:18 Hydromorphone 1 Mg/1ml Inj IV 03/14/24 17:03 1 mg STAT ONE Administration Hydromorphone HCl Confirm 03/14/24 17:16 Hydromorphone 1 Mg/1ml Inj Administered 03/14/24 17:17 Dose 1 mg .ROUTE .STK-MED ONE Ondansetron HCl 4 mg 03/14/24 15:47 03/14/24 16:15 Zofran 4 Mg/Udtablet Orally Disintegrating PO 03/14/24 15:48 Not Given STAT ONE Ondansetron HCl 4 mg 03/14/24 16:21 03/14/24 16:24 Ondansetron Hcl 4 Mg/2 Ml Vial IV 03/14/24 16:22 4 mg STAT ONE Administration Ondansetron HCl Confirm 03/14/24 16:22 Ondansetron Hcl 4 Mg/2 Ml Vial Administered 03/14/24 16:23 Dose 4 mg .ROUTE .STK-MED ONE Lab/Rad Data: Laboratory Result Diagrams 03/14/24 16:10 03/14/24 16:10 Laboratory Results 03/14/24 03/14/24 03/14/24 Range/Units 16:10 16:10 16:10 WBC 7.8 (3.98-10.04) x10^3/uL RBC 4.96 (3.93-5.22) x10^6/uL Hgb 15.2 (11.2-15.7) g/dL Hct 43.0 (34.1-44.9) % MCV 86.7 (79.4-94.8) fL MCH 30.6 (25.6-32.2) pg MCHC 35.3 (32.2-35.5) g/dL RDW 12.3 (11.7-14.4) % Plt Count 292 (182-369) x10^3/uL MPV 9.4 (9.4-12.3) fL Gran % 71.7 H (34.0-71.1) % Immature Gran % (Auto) 0.6 H (0.001-0.429) % Nucleat RBC Rel Count 0.0 (0.00-0.2) % Eos # (Auto) 0.08 (0.04-0.36) x10^3/uL Immature Gran # (Auto) 0.05 H (0.001-0.031) x10^3u/L Absolute Lymphs (auto) 1.53 (1.18-3.74) x10^3/uL Absolute Monos (auto) 0.48 (0.24-0.86) x10^3/uL Absolute Nucleated RBC 0.00 (0.00-0.012) x10^3u/L Lymphocytes % 19.7 (19.3-51.7) % Monocytes % 6.2 (4.7-12.5) % Eosinophils % 1.0 (0.7-5.8) % Basophils % 0.8 (0.1-1.2) % Absolute Granulocytes 5.55 (1.56-6.13) x10^3/uL Basophils # 0.06 (0.01-0.08) x10^3/uL Sodium 138 (135-145) mmol/L Potassium 3.9 (3.5-5.1) mmol/L Chloride 106 (98-107) mmol/L Carbon Dioxide 23 (22-30) mmol/L Anion Gap 13.9 (5-15) MEQ/L BUN 14 (7-17) mg/dL Creatinine 0.86 (0.52-1.04) mg/dL Estimated GFR 85.4 ML/MIN Glucose 88 (74-106) mg/dL Calcium 9.4 (8.4-10.2) mg/dL Magnesium 1.9 (1.6-2.3) mg/dL Total Bilirubin 1.30 (0.2-1.3) mg/dL AST 24 (14-36) U/L ALT 19 (0-35) U/L Alkaline Phosphatase 53 (38-126) U/L Troponin I < 0.012 (0.000-0.033) ng/mL NT-Pro-B Natriuret Pep < 20.0 (<300) pg/mL Serum Total Protein 7.3 (6.3-8.2) g/dL Albumin 4.7 (3.5-5.0) g/dL - Progress Progress: improved Counseled pt/family regarding: lab results, diagnosis, need for follow-up, rad results Medical Desision Making - Diagnostic Testing Diagnostic test were ordered, analyzed, and reviewed by me: Yes Radiological Interpretation: Teleradiologist Report - Departure Departure Disposition: Home Clinical Impression: Headache, Shortness of air Condition: Stable Critical Care Time: No Referrals: JUAN ZIMMERMAN JR [Primary Care Provider] - Follow up/PCP as directed Instructions: Headache, Adult (DC), Shortness of breath in adults - ED discharge instructions Additional Instructions: Follow up with private doctor tomorrow. Forms: Work/School Release Form
[2024-03-14] MEDS: ZOFRAN ODT 4 MG PO ONE (16:15)
[2024-03-14] MEDS: Hydromorphone 1 mg/ml Injection IM ONE (16:15)
[2024-03-14] MEDS ORDERED: Hydromorphone 1 mg/ml Injection ONE ×2 (16:22→17:16)
[2024-03-14] MEDS ORDERED: Zofran 4 MG/2 ML VIAL ONE (16:22)
[2024-03-14 16:23] LABS: Absolute Neutrophil Ct (ANC) 5.55 x10^3/uL (1.56-6.13); BASOPHIL % 0.8 % (0.1-1.2); Basophil (Absolute #) 0.06 x10^3/uL (0.01-0.08); Eosinophil (Absolute #) 0.08 x10^3/uL (0.04-0.36); Hemoglobin 15.2 g/dL (11.2-15.7); IMMATURE GRAN # 0.05 x10^3u/L (0.001-0.031); IMMATURE GRAN % 0.6 % (0.001-0.429); Lymphocyte (Absolute #) 1.53 x10^3/uL (1.18-3.74); Lymphocytes % 19.7 % (19.3-51.7); Mean Cell Volume 86.7 fL (79.4-94.8); Mean Corpuscular Hemoglobin 30.6 pg (25.6-32.2); Mean Corpuscular Hgb Concent. 35.3 g/dL (32.2-35.5); Mean Platelet Volume 9.4 fL (9.4-12.3); Monocyte (Absolute #) 0.48 x10^3/uL (0.24-0.86); Monocytes % 6.2 % (4.7-12.5); Neutrophil % 71.7 % (34.0-71.1); Platelet Count 292 x10^3/uL (182-369); Red Blood Count 4.96 x10^6/uL (3.93-5.22); Red Cell Distribution Width 12.3 % (11.7-14.4); White Blood Count 7.8 x10^3/uL (3.98-10.04)
[2024-03-14] MEDS: Hydromorphone 1 mg/ml Injection IV ONE ×2 (16:23→17:18)
[2024-03-14] MEDS: Zofran 4 MG/2 ML VIAL IV ONE (16:24)
[2024-03-14 16:41] VITALS: RESP 17
[2024-03-14 16:53] LABS: ALBUMIN 4.7 g/dL (3.5-5.0); ALKALINE PHOSPHATASE 53 U/L (38-126); ANION GAP 13.9 MEQ/L (5-15); BLOOD UREA NITROGEN 14 mg/dL (7-17); CHLORIDE 106 mmol/L (98-107); Calcium 9.4 mg/dL (8.4-10.2); Carbon Dioxide 23 mmol/L (22-30); Creatinine 1 0.86 mg/dL (0.52-1.04); EST GLOMERULAR FILTRATION RATE 85.4 ML/MIN; Glucose 88 mg/dL (74-106); MAGNESIUM 1.9 mg/dL (1.6-2.3); NT PRO BNPII < 20.0 pg/mL (<300); Potassium 3.9 mmol/L (3.5-5.1); SGOT/AST 24 U/L (14-36); SGPT/ALT 19 U/L (0-35); SODIUM 138 mmol/L (135-145); Total Protein 7.3 g/dL (6.3-8.2)
--- NOTE | 2024-03-14 17:07 | XRAY ---
CLINICAL HISTORY: headache COMPARISON: None. TECHNIQUE: An axial non-contrast CT scan of the brain was performed from the skull base to the high parietal region. One of the following dose reduction techniques was utilized for this exam: Automated exposure control, adjustment of the mA and/or kV according to patient size, and use of iterative reconstruction. FINDINGS: Brain Parenchyma: Normal attenuation of the cerebral hemispheres, cerebellum, and brainstem. No evidence of acute infarct, hemorrhage, or mass effect. No abnormal areas of hypo- or hyperattenuation. Ventricular System: Ventricles are normal in size and configuration. No evidence of hydrocephalus or ventricular enlargement. Subarachnoid Spaces: Normal sulci and cisterns. No evidence of subarachnoid hemorrhage or extra-axial fluid collections. Cerebellum and Brainstem: Normal size and density. No masses, lesions, or areas of abnormal density. Orbits: Normal appearance of the globes, optic nerves, and extraocular muscles. No evidence of orbital masses or abnormal density. Sinuses: Clear paranasal sinuses. No evidence of sinusitis or mucosal thickening. Bilateral conchae bullosa Mastoid Air Cells: Clear mastoid air cells. No evidence of mastoiditis. Skull: Normal skull morphology. IMPRESSION: Normal CT of the head without contrast. Electronically Signed by: Betty Daniels MD. (03/14/2024 17:03:46 EST)
--- NOTE | 2024-03-14 17:33 | XRAY ---
CLINICAL HISTORY: dyspnea COMPARISON: None. TECHNIQUE: Contiguous axial CT images of the chest were acquired with the administration of intravenous contrast. Coronal and sagittal reconstructions were obtained. 80cc isovue 370 was administered for post-contrast images. One of the following dose reduction techniques were utilized for this exam: Automated exposure control, adjustment of the mA and/or kV according to patient size, use of iterative reconstruction. FINDINGS: Lungs: Two small calcified nodules seen in the left upper and lower lobe, subpleural in location measure 5 and 8mm respectively represent calcified granulomas. A small 2mm nodule seen in the right upper lobe of benign appearance. Otherwise clear lungs, no evidence of consolidation, collapse, or focal lesions. No ground-glass opacities or interstitial changes. No pleural effusion or pleural thickening. Mediastinum: No mediastinal mass or abnormal lymphadenopathy. Normal appearance of the thymus. Hilar Structures: Normal size and configuration, no enlargement. Heart and Great Vessels: Normal heart size and configuration. No pericardial effusion. Normal caliber and course of the thoracic aorta and other great vessels. No significant atherosclerosis or aneurysm. Pulmonary Arteries: No evidence of pulmonary embolism. Normal size and course of the pulmonary arteries. Bones: No fractures or lytic/sclerotic lesions. Normal bone density and alignment. No evidence of rib fractures. Chest Wall: No masses or soft tissue abnormalities. Upper Abdomen: Cholecystectomy clips noted. Mild intrahepatic biliary ectasia. Esophagus: Normal course and caliber. No masses or dilatation. IMPRESSION: 1. Few calcified and non-calcified lung nodules which measures 2 mm. No follow-up if low risk, optional 12-month follow-up if high risk as per Fleischner Society guidelines. 2. Otherwise normal CT of the chest with and without contrast. Electronically Signed by: Betty Daniels MD. (03/14/2024 17:29:50 EST)
[2024-03-14 17:34] VITALS: O2SAT 98
[2024-03-14 17:40] VITALS: BP 132/94; PULSE 68
== END 2024-03-14 17:53 | disposition home or self-care (01) ==
LOC: ED 15:23
DX: R51.9 Headache, unspecified (principal); R06.02 Shortness of breath; R11.2 Nausea with vomiting, unspecified; H53.149 Visual discomfort, unspecified; Z79.899 Other long term (current) drug therapy
CPT/HCPCS: 36415; 70450; 71260; 80053; 83735; 83880; 84484; 85025; 93005; 93041; 96374; 96376; 99284; 99285; J1171; J2405